=== PATIENT | male | born 1960 | race African-American/Black ===

== ENCOUNTER 2019-09-15 13:07 | Observation (INO) | payer MEDICARE, OTHER ==
[~2019-09-15] VITALS: Ht 198.1 cm; Wt 124.3 kg
[~2019-09-15 13:07] MED LIST: ATORVASTATIN CA20 MG PO; CLOPIDOGREL75 MG PO; HYDROCHLOROTHIA25 MG PO; METOPROLOL TART25 MG PO; TEMAZEPAM30 MG PO
--- OUTSIDE RECORDS SUMMARY | 2019-09-15 13:10 | XMS REPORT ---
Author Author [facility] Address Unknown Phone Unavailable Care Team Providers Care Director Audience Marketing Name Role Phone Unavailable Unavailable Problems This patient has no known problems. Allergies, Adverse Reactions, Alerts This patient has no known allergies or adverse reactions. Medications This patient has no known medications.
--- OUTSIDE RECORDS SUMMARY | 2019-09-15 13:10 | XMS REPORT | Summary of Care ---
Author Author [facility] - Health Organization [facility] - Health Address Unknown Phone Unavailable Care Team Providers Care Cutting Machine Fixer Name Role Phone Rojelio Tarango MD PCP Encounter Details Care Team Description Date Type Department Billy Kearney, DO [address] [place] [address] Arrived 09/09/2019 [facility] Encounter Pediatric Primary Care - Radiology [address] [place] [address] Allergies No Known Allergiesdocumented as of this encounter (statuses as of 09/10/2019) Medications End Date Status Medication Sig Dispensed Refills Start Date Active temazepam (RESTORIL) 30 Take 1 Cap by 90 Cap 1 mg capsuleIndications: mouth at 5 Insomnia bedtime. Active pantoprazole 40 mg EC Take 1 tablet 30 tablet 0 tablet by mouth 7 daily. Active aspirin 81 mg EC tablet Take 1 tablet 0 by mouth 7 daily. Active methylPREDNISolone 4 mg Take by 21 Each 0 tabletsIndications: mouth 9 Chronic pansinusitis, SEE-INSTRUCTI Hearing abnormally acute, ONS. follow left package directions Active azelastine 137 mcg (0.1 Use 1 [place] 30 mL 3 %) nasal in each 9 sprayIndications: nostril 2 Salpingitis of left (two) times eustachian tube daily. Use in each nostril as directed Active azithromycin 250 mg Take 1 tablet 1 Package 0 tabletIndications: by mouth 9 Bacterial URI daily. Take 500 mg day 1, then 250 mg days 2 to 5. Active metoprolol tartrate 25 mg Take 1 tablet 180 tablet 3 tabletIndications: by mouth 2 0 Coronary artery disease (two) times involving rosebud coronary daily. artery of rosebud heart without angina pectoris Active atorvastatin 40 mg Take 1 tablet 90 tablet 3 tabletIndications: by mouth at 0 Coronary artery disease bedtime. involving rosebud coronary artery of rosebud heart without angina pectoris Active hydroCHLOROthiazide 12.5 Take 1 90 capsule 1 mg capsuleIndications: capsule by 0 Essential hypertension mouth daily. 10/09/2019 Active mometasone (NASONEX) 50 Use 1 [place] 17 g 0 mcg/actuation nasal in each 0 sprayIndications: Dyspnea nostril every on exertion 4 (four) hours as needed (sinus congestion) for up to 30 days. 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 05/26/2015 H/O coronary artery bypass surgery 05/12/2015 CAD (coronary artery disease) 05/12/2015 NSTEMI (non-ST elevated myocardial infarction) 05/08/2015 Insomnia 07/03/2012 documented as of this encounter (statuses as of 09/10/2019) Resolved Problems Problem Noted Date Resolved Date Pre-syncope 08/15/2015 10/20/2018 Edema of hand 08/02/2015 10/20/2018 Weakness of left hand 08/02/2015 10/20/2018 Chest pain 11/15/2011 10/20/2018 Overview: ICD10 Diagnosis Term 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 Other chronic otitis externa 11/12/2006 10/20/2018 documented as of this encounter (statuses as of 09/10/2019) Immunizations Name Administration Dates Next Due Influenza Virus Vaccine 07/13/2013 (3+ yrs) Influenza Virus Vaccine 05/18/2015 Quad IM 3+ YRS documented as of this encounter Social History Date Tobacco Use Types Packs/Day Years Used Never Smoker Smokeless Tobacco: Never Used Drinks/Week oz/Week Comments Alcohol Use 1 Standard drinks or equivalent 0.8 rare Yes Sex Assigned at Date Recorded Not on file Industry Job Start Date Occupation Not on file Not on file Not on file Travel End Travel History Travel Start No recent travel history available. documented as of this encounter Last Filed Vital Signs Not on filedocumented in this encounter Plan of Treatment Care Team Description Date Type Specialty Sergio Sanabria MD [address] [place] [phone] 11/24/2019 Office Visit Family Medicine Bushra Coles MD [address] [place] [address] [address] [place] [address] [phone] 07/07/2020 Office Visit Cardiology Health Maintenance Due Date Last Done Comments HEPATITIS C (HCV) SCREEN 1960 PNEUMOCOCCAL 0-64 YEARS 1966 COMBINED SERIES (1 of 3 - PCV13) DTaP,Tdap,and Td Vaccines 12/13/1971 (1 - Tdap) COLONOSCOPY 2010 Zoster Recombinant 2010 Vaccine (SHINGRIX) (1 of 2) INFLUENZA VACCINE (#1) 2020 05/18/2015, 07/13/2013 Postponed from 02/28/2019 (Refused) documented as of this encounter Procedures Comments Procedure Name Priority Date/Time Associated Diagnosis XR CHEST 2 VW Routine 09/09/2019 Dyspnea on exertion 12:33 PM CDT documented in this encounter Results * XR CHEST 2 VW (09/09/2019 12:33 PM CDT) Specimen Impressions Performed At No acute cardiopulmonary abnormality PACS/VR/DOSE Preliminary Report Dictated by Resident: Caitlin Morelos I, Delroy Thao MD., have reviewed this study and agree with the above report. Narrative Performed At EXAM: PACS/VR/DOSE XR CHEST 2 VW HISTORY: 58 years-old; Male; shortness of breath COMPARISON: 08/09/2018 FINDINGS: The lungs are clear with no focal consolidation. There is no pleural effusion or pneumothorax. The cardiomediastinal silhouette is normal. No acute osseous structure abnormality. Changes of median sternotomy is noted. Multiple clips superimposing over the left arterial appendix. Procedure Note [facility], Radiant Results Inft User - 09/09/2019 1:05 PM CDT EXAM: XR CHEST 2 VW HISTORY: 58 years-old; Male; shortness of breath COMPARISON: 08/09/2018 FINDINGS: The lungs are clear with no focal consolidation. There is no pleural effusion or pneumothorax. The cardiomediastinal silhouette is normal. No acute osseous structure abnormality. Changes of median sternotomy is noted. Multiple clips superimposing over the left arterial appendix. IMPRESSION No acute cardiopulmonary abnormality Preliminary Report Dictated by Resident: Caitlin Morelos I, Delroy Thao MD., have reviewed this study and agree with the above report. Performing Organization Address City/State/Zipcode Phone Number PACS/VR/DOSE documented in this encounter Visit Diagnoses Diagnosis Dyspnea on exertion Other dyspnea and respiratory abnormality documented in this encounter Insurance Type Payer Benefit Subscriber ID Effective Phone Address Plan / Dates Group Medicare Adv PPO HUMANA - MANAGED MEDICARE HUMANA [id number] 2017-P CHOICE resent documented as of this encounter
--- OUTSIDE RECORDS SUMMARY | 2019-09-15 13:10 | XMS REPORT | Summary of Care ---
Author Author [facility] - Health Organization [facility] - Health Address Unknown Phone Unavailable Care Team Providers Care Barrel Waterer Name Role Phone Rojelio Tarango MD PCP Reason for Referral * (Routine) Referred By Contact Referred To Contact Status Reason Specialty Diagnoses / Procedures Billy Kearney DO [address] [place] [address] New Request Cardiology Diagnoses Dyspnea on exertion P rocedures ECHO ROUTINE W/DOPPLER COLOR Preferred Location: [place] ([facility]) Reason for Visit * Reason Comments Congestion Shortness of Breath Encounter Details Care Team Description Date Type Department Billy Kearney DO [address] [place] [address] Sergio Sanabria MD [address] [place] [phone] Dyspnea on exertion (Primary Dx); Chronic pansinusitis; Hearing abnormally acute, left; Salpingitis of left eustachian tube; Coronary artery disease involving gakona coronary artery of gakona heart without angina pectoris; Obesity (BMI 30-39.9); Essential hypertension; Abnormal findings on diagnostic imaging of other parts of digestive tract ; Abnormal finding of blood chemistry, unspecified 09/09/2019 Office Visit [facility], [address], [address] [place] [address] Allergies No Known Allergiesdocumented as of this encounter (statuses as of 09/09/2019) Medications End Date Status Medication Sig Dispensed [...] Active azelastine 137 mcg (0.1 Use 1 [place] 30 mL 3 %) nasal in each [...] 0 Coronary artery disease (two) times involving gakona coronary daily. artery of gakona heart without angina pectoris Active atorvastatin 40 mg Take 1 tablet 90 tablet 3 tabletIndications: by mouth at 0 Coronary artery disease bedtime. involving gakona coronary artery of gakona heart without angina pectoris Active hydroCHLOROthiazide 12.5 Take 1 90 capsule 1 mg capsuleIndications: capsule by 0 Essential hypertension mouth daily. 10/09/2019 Active mometasone (NASONEX) 50 Use 1 [place] 17 g 0 mcg/actuation nasal in each 0 sprayIndications: Dyspnea nostril every on exertion 4 (four) hours as needed (sinus congestion) for up to 30 days. 09/09/2019 Discontinued (Duplicate) fluticasone 50 Use 1 [place] 16 g 0 mcg/actuation nasal in each 9 sprayIndications: Acute nostril bronchitis, unspecified daily. organism 09/09/2019 Discontinued (Reorder) hydroCHLOROthiazide 12.5 Take 1 90 capsule 1 mg capsule capsule by 9 mouth daily. 09/09/2019 Discontinued (Error) fluticasone propionate 50 Use 1 [place] 16 g 0 mcg/actuation nasal in each 9 sprayIndications: Chronic nostril 2 pansinusitis, Hearing (two) times abnormally acute, left daily. 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 05/26/2015 H/O coronary artery bypass surgery 05/12/2015 CAD (coronary artery disease) 05/12/2015 NSTEMI (non-ST elevated myocardial infarction) 05/08/2015 Insomnia 07/03/2012 documented as of this encounter (statuses as of 09/09/2019) Resolved Problems Problem Noted Date Resolved Date Pre-syncope 08/15/2015 10/20/2018 Edema of hand 08/02/2015 10/20/2018 Weakness of left hand 08/02/2015 10/20/2018 Chest pain 11/15/2011 10/20/2018 Overview: ICD10 Diagnosis Term Hearing Aid Assembly Supervisor Utility Other chronic otitis externa 11/12/2006 10/20/2018 documented as of this encounter (statuses as of 09/09/2019) Immunizations Name Administration Dates Next Due Influenza [...] of this encounter Last Filed Vital Signs Reading Time Taken Comments Vital Sign 122/80 09/09/2019 10:54 AM CDT Blood Pressure 63 09/09/2019 10:54 AM CDT Pulse 36.2 C (97.1 F) 09/09/2019 10:54 AM CDT Temperature 20 09/09/2019 10:54 AM CDT Respiratory Rate 96% 09/09/2019 10:54 AM CDT Oxygen Saturation - - Inhaled Oxygen Concentration 126.6 kg (279 lb) 09/09/2019 10:54 AM CDT Weight 198.1 cm (6' 6") 09/09/2019 10:54 AM CDT Height 32.24 09/09/2019 10:54 AM CDT Body Mass Index documented in this encounter Progress Notes * Suri Correa MA - 09/09/2019 10:30 AM CDT The patient has signed the informed consent to have blood drawn. Previous/Current Encounter Diagnosis: R06.9, R93.3, R79.9, E66.9 Venipuncture performed by clean technique on the right anticubitus. Slight pres sure and a bandage/dressing were applied to the venipuncture site. The patient tolerated the procedure well. Labs were sent to [facility]'s main lab per lab order o n 09/09/2019. Total venipuncture of 1 was done and 3 tubes of blood were sent. * Sergio Sanabria MD - 09/09/2019 10:30 AM CDT Family Medicine Clinic Visit Date: 09/09/2019 CC: Congestion and Shortness of Breath HPI: Demarco Coronado is a 58 year old male with past medical history of sinusitis, allergi c rhinitis, CAD s/p CABG X2 (2014) presents with a complain of shortness of mann th and sinus pressure for one week. Shortness of breath is intermittent, feels l charles "cant breath", remained the same, worse with exersion, normal at rest and la juan down, occurs anytime in the day. Associated with something stuck in the thr oat "feels like there is thick secretion in my throat" and sinus. He has tried m ucinex which didn't help. Denies fever, chills, chest pain, palpitations, nausea , vomiting, diarrhea, polyphagia, polydipsia, change in weight, recent travel or sick contact. Patient is worried that he might catch vinson virus so he is stay ing at home for the past week. Patient never smoked tobacco or illicit drugs or used heavy alcohol in the past. Home Medications: Current Outpatient Medications Medication Sig Dispense Refill hydroCHLOROthiazide 12.5 mg capsule Take 1 capsule by mouth daily. 90 capsul e 1 mometasone (NASONEX) 50 mcg/actuation nasal spray Use 1 [place] in each nostri l every 4 (four) hours as needed (sinus congestion) for up to 30 days. 17 g 0 atorvastatin 40 mg tablet Take 1 tablet by mouth at bedtime. 90 tablet 3 metoprolol tartrate 25 mg tablet Take 1 tablet by mouth 2 (two) times daily. 180 tablet 3 azithromycin 250 mg tablet Take 1 tablet by mouth daily. Take 500 mg day 1, then 250 mg days 2 to 5. 1 Package 0 methylPREDNISolone 4 mg tablets Take by mouth SEE-INSTRUCTIONS. follow pack age directions 21 Each 0 aspirin 81 mg EC tablet Take 1 tablet by mouth daily. pantoprazole 40 mg EC tablet Take 1 tablet by mouth daily. 30 tablet azelastine 137 mcg (0.1 %) nasal spray Use 1 [place] in each nostril 2 (two) t imes daily. Use in each nostril as directed 30 mL 3 temazepam (RESTORIL) 30 mg capsule Take 1 Cap by mouth at bedtime. 90 Cap 1 No current facility-administered medications for this visit. Allergies: No Known Allergies Histories: Past Medical History: Diagnosis Date Acute maxillary sinusitis Allergic rhinitis Depressive disorder, not elsewhere classified Hyperlipidemia S/P off pump CABG x 2 05/12/2015 Unspecified otitis media Past Surgical History: Procedure Laterality Date CORONARY ARTERY BYPASS GRAFT N/A 05/12/2015 Surgeon: Alf Hoffmann MD; Location: [facility] OFF PUMP CORONARY ARTERY BYPASS GRAFTING 05/12/2015 TONSILLECTOMY done for recurrent infections Family History Problem Relation Age of Onset Cancer Father lung Diabetes Mother Heart Mother CABG @ 70 Hypertension Mother Social History Tobacco Use Smoking status: Never Smoker Smokeless tobacco: Never Used Substance Use Topics Alcohol use: Yes Alcohol/week: 0.8 standard drinks Types: 1 Standard drinks or equivalent per week Comment: rare Drug use: No Review of Systems Constitutional: Negative for appetite change, chills, fatigue, fever, unexpected weight change, weight gain and weight loss. HENT: Positive for congestion and sinus pressure. Negative for nosebleeds, rhino rrhea, sore throat and voice change. Eyes: Negative for redness. Respiratory: Positive for shortness of breath. Negative for cough, choking, ches t tightness and wheezing. Cardiovascular: Positive for leg swelling. Negative for chest pain and palpitati ons. Gastrointestinal: Negative for abdominal distention, abdominal pain, diarrhea, n ausea and vomiting. Genitourinary: Negative for urgency, polyuria and frequency. Musculoskeletal: Negative for myalgias and neck pain. Skin: Negative for color change and rash. Neurological: Negative for weakness and headaches. Endocrine: Negative for polydipsia, polyphagia, polyuria, weight gain and weight loss. BP 122/80 | Pulse 63 | Temp 36.2 C (97.1 F) | Resp 20 | Ht 6' 6" (1.981 m) | Wt 279 lb (126.6 kg) | SpO2 96% | BMI 32.24 kg/m Physical Exam Constitutional: He is oriented to person, place, and time. He appears well-devel oped and well-nourished. No distress. HENT: Head: Normocephalic and atraumatic. Nose: Nose normal. Mouth/Throat: Oropharynx is clear and moist. No oropharyngeal exudate. No facial tenderness to palpation Eyes: Pupils are equal, round, and reactive to light. EOM are normal. Neck: No thyromegaly present. Cardiovascular: Normal rate, regular rhythm and normal heart sounds. Exam reveal s no gallop and no friction rub. No murmur heard. Pulmonary/Chest: Effort normal and breath sounds normal. No respiratory distress . He has no wheezes. He has no rales. Abdominal: Soft. Bowel sounds are normal. He exhibits no distension. There is no tenderness. Musculoskeletal: Normal range of motion. He exhibits edema. Trace bilateral lower extremity ankle edema Lymphadenopathy: He has no cervical adenopathy. Neurological: He is alert and oriented to person, place, and time. No cranial ne rve deficit. Skin: No rash noted. No erythema. Psychiatric: He has a normal mood and affect. Assessment and Plan: Demarco Coronado is a 58 year old male presents with shortness of breath for one week. 1. Dyspnea on exertion Acute. Stable. Physical exam positive for trace bilateral ankle edema. Patient w ith hx of alpha thalassemia and iron deficiency anemia, CAD s/p CABG x2 in 2014. Last echo is in 2018 with mild blt atrial dilation, mild aortic root dilation a nd mild pulmonary hypertension. EKG in 06/2019 normal sinus rhythm. - CBC WITH DIFF - COMP. METABOLIC PANEL (26516); Future - ECHO ROUTINE W/DOPPLER COLOR Preferred Location: [place] ([facility]); Future - XR CHEST 2 VW; Future - N-TERMINAL PRO-BNP; Future - THYROID STIMULATING HORMONE; Future - Adequate rest and fluid intake. Avoid public area. Perform hand hygiene. - expected course of illness discussed with patient. Voiced understanding - discussed potential for present illness to worsen as well as warning signs tremaine t would require reevaluation - AVS provided with additional information for the patient - all questions voiced answered - RTC precautions discussed and patient. noted understanding 2. Chronic pansinusitis Chronic recurrent sinus pressure. Stable. Patient reports no-to-clear nasal disc harge. - mometasone (NASONEX) 50 mcg/actuation nasal spray; Use 1 [place] in each nostril every 4 (four) hours as needed (sinus congestion) for up to 30 days. 3. Coronary artery disease involving gakona coronary artery of gakona heart with out angina pectoris Chronic. Stable. Currently no chest pain, palpitations. -managed by cardiology. -Continue metoprolol, HCTZ, Aspirin, atorvastatin -LIPID PANEL (71743)(TOTAL CHOLESTEROL, TRIGLYCERIDES, HDL); Future 4. Obesity (BMI 30-39.9) 5. Abnormal finding of blood chemistry, unspecified - GLYCOSYLATED HEMOGLOBIN (A1C) - Discussed about portion control of diet. 6. Essential hypertension Chronic. Stable. Home BP readings <120/80. - hydroCHLOROthiazide 12.5 mg capsule; Take 1 capsule by mouth daily. Dispense: 90 capsule; Refill: 1 Other Medical history 7. Hearing abnormally acute, left 8. Salpingitis of left eustachian tube RTC in 2 months for chronic disease management and health maintenance. ED warnings given. Patient understands. All questions and concerns addressed. Sergio Sanabria MD (PGY-1) Family Medicine documented in this encounter Plan of Treatment Care Team Description Date Type Specialty Sergio Sanabria MD [address] [place] [phone] 11/24/2019 Office Visit Family Medicine Bushra Coles MD [address] [place] [address] [place] [address] [phone] 07/07/2020 Office Visit Cardiology Date/Time Name Type Priority Associated Diagnoses 09/09/2019 12:12 PM CDT CBC WITH DIFF LAB Routine Dyspnea on exertion 09/09/2019 12:12 PM CDT COMP. METABOLIC PANEL LAB Routine Dyspnea on exertion (67744) 09/09/2019 12:12 PM CDT LIPID PANEL (77558)(TOTAL LAB Routine Abnormal findings on CHOLESTEROL, diagnostic imaging of TRIGLYCERIDES, HDL) other parts of digestive tract Dyspnea on exertion 09/09/2019 12:12 PM CDT GLYCOSYLATED HEMOGLOBIN LAB Routine Abnormal finding of blood (A1C) chemistry, unspecified Obesity (BMI 30-39.9) 09/09/2019 12:12 PM CDT N-TERMINAL PRO-BNP LAB Routine Dyspnea on exertion 09/09/2019 12:12 PM CDT THYROID STIMULATING LAB Routine Dyspnea on exertion HORMONE 09/09/2019 12:12 PM CDT CBC WITH DIFFERENTIAL LAB Routine Dyspnea on exertion Order Schedule Name Type Priority Associated Diagnoses Expected: 09/09/2019, Expires: 09/08/2020 COMP. METABOLIC PANEL LAB Routine Dyspnea on exertion (16821) Expected: 09/09/2019, Expires: 09/08/2020 LIPID PANEL (26251)(TOTAL LAB Routine Abnormal findings on CHOLESTEROL, diagnostic imaging of TRIGLYCERIDES, HDL) other parts of digestive tract Dyspnea on exertion Expected: 09/09/2019, Expires: 09/08/2020 N-TERMINAL PRO-BNP LAB Routine Dyspnea on exertion Expected: 09/09/2019, Expires: 09/08/2020 THYROID STIMULATING LAB Routine Dyspnea on exertion HORMONE Health Maintenance Due Date Last Done Comments HEPATITIS C (HCV) SCREEN 1960 PNEUMOCOCCAL 0-64 YEARS 1966 COMBINED SERIES (1 of 3 - PCV13) DTaP,Tdap,and Td Vaccines 12/13/1971 (1 - Tdap) COLONOSCOPY 2010 Zoster Recombinant 2010 Vaccine (SHINGRIX) (1 of 2) INFLUENZA VACCINE (#1) 2020 05/18/2015, 07/13/2013 Postponed from 02/28/2019 (Refused) documented as of this encounter Results * XR CHEST 2 VW (09/09/2019 12:33 PM CDT) Specimen Impressions Performed At No acute cardiopulmonary abnormality PACS/VR/DOSE Preliminary Report Dictated by Resident: Delroy Craft MD., have reviewed this study and agree [...] cardiopulmonary abnormality Preliminary Report Dictated by Resident: Delroy Craft MD., have reviewed this study and agree with the above report. Performing Organization Address City/State/Zipcode Phone Number PACS/VR/DOSE documented in this encounter Visit Diagnoses Diagnosis Dyspnea on exertion - Primary Other dyspnea and respiratory abnormality Chronic pansinusitis Other chronic sinusitis Hearing abnormally acute, left Salpingitis of left eustachian tube Eustachian salpingitis, unspecified Coronary artery disease involving gakona coronary artery of gakona heart without angina pectoris Obesity (BMI 30-39.9) Obesity, unspecified Essential hypertension Unspecified essential hypertension Abnormal findings on diagnostic imaging of other parts of digestive tract Abnormal finding of blood chemistry, unspecified documented in this encounter Insurance Type Payer Benefit Subscriber ID Effective Phone Address Plan / Dates Group Medicare Adv PPO HUMANA - MANAGED MEDICARE HUMANA [id number] 2017-P CHOICE resent documented as of this encounter
--- OUTSIDE RECORDS SUMMARY | 2019-09-15 13:10 | XMS REPORT | Summary of Care ---
Author Author [facility] - Health Organization [facility] - Health Address Unknown Phone Unavailable Care Team Providers Care Inspector Assembly Name Role Phone Rojelio Tarango MD PCP Reason for Referral * (Routine) Referred By Contact Referred To Contact Status Reason Specialty Diagnoses / Procedures Billy Kearney DO [address] [place] [address] New Request Cardiology Diagnoses Dyspnea on exertion P rocedures ECHO ROUTINE W/DOPPLER COLOR Preferred Location: [place] ([facility]) Reason for Visit * Reason Comments Congestion Shortness of Breath Encounter Details Care Team Description Date Type Department Billy Kearney DO [address] [place] [address] Sergio Sanabria MD [address] [place] [phone] Dyspnea on exertion (Primary Dx); Chronic pansinusitis; Hearing abnormally acute, left; Salpingitis of left eustachian tube; Coronary artery disease involving [place] coronary artery of [place] heart without angina pectoris; Obesity (BMI 30-39.9); Essential hypertension; Abnormal findings on diagnostic imaging of other parts of digestive tract ; Abnormal finding of blood chemistry, unspecified 09/09/2019 Office Visit [facility] Family Medicine, [address], [address] [place] [address] Allergies No Known Allergiesdocumented as [...] Active azelastine 137 mcg (0.1 Use 1 [place] 30 mL 3 %) nasal in each [...] 0 Coronary artery disease (two) times involving [place] coronary daily. artery of [place] heart without angina pectoris Active atorvastatin 40 mg Take 1 tablet 90 tablet 3 tabletIndications: by mouth at 0 Coronary artery disease bedtime. involving [place] coronary artery of [place] heart without angina pectoris Active hydroCHLOROthiazide 12.5 Take 1 90 capsule 1 mg capsuleIndications: capsule by 0 Essential hypertension mouth daily. 10/09/2019 Active mometasone (NASONEX) 50 Use 1 [place] 17 g 0 mcg/actuation nasal in each 0 sprayIndications: Dyspnea nostril every on exertion 4 (four) hours as needed (sinus congestion) for up to 30 days. 09/09/2019 Discontinued (Duplicate) fluticasone 50 Use 1 [place] 16 g 0 mcg/actuation nasal in each 9 sprayIndications: Acute nostril bronchitis, unspecified daily. organism 09/09/2019 Discontinued (Reorder) hydroCHLOROthiazide 12.5 Take 1 90 capsule 1 mg capsule capsule by 9 mouth daily. 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 Labs were sent to [facility]'s main lab per lab order o [...] (NASONEX) 50 mcg/actuation nasal spray Use 1 [place] in each nostri l every 4 (four) [...] mcg (0.1 %) nasal spray Use 1 [place] in each nostril 2 (two) t imes [...] N/A 05/12/2015 Surgeon: Alf Hoffmann MD; Location: [facility] CORONARY ARTERY BYPASS GRAFTING 05/12/2015 [...] CBC WITH DIFF - COMP. METABOLIC PANEL (78540); Future - ECHO ROUTINE W/DOPPLER COLOR Preferred Location: [place] ([facility]); Future - XR CHEST 2 VW; Future [...] (NASONEX) 50 mcg/actuation nasal spray; Use 1 [place] in each nostril every 4 (four) hours as needed (sinus congestion) for up to 30 days. 3. Coronary artery disease involving [place] coronary artery of [place] heart with out angina pectoris Chronic. Stable. Currently no chest pain, palpitations. -managed by cardiology. -Continue metoprolol, HCTZ, Aspirin, atorvastatin -LIPID PANEL (74327)(TOTAL CHOLESTEROL, TRIGLYCERIDES, HDL); Future 4. Obesity (BMI [...] Description Date Type Specialty Sergio Sanabria MD [address] [place] [phone] 11/24/2019 Office Visit Family Medicine Bushra Coles MD [address] [place] [address] [place] [address] [phone] 07/07/2020 Office Visit Cardiology Order Schedule Name Type Priority Associated Diagnoses Ordered: 09/10/2019 IRON PANEL LAB Add-on Dyspnea on exertion Expected: 09/10/2019, Expires: 09/09/2020 FERRITIN SERUM LAB Add-on Dyspnea on exertion Expected: 09/10/2019, Expires: 09/09/2020 BILIRUBIN TOTAL LAB Add-on Dyspnea on exertion Health Maintenance Due Date Last Done Comments HEPATITIS C (HCV) SCREEN 1960 PNEUMOCOCCAL 0-64 YEARS 1966 COMBINED SERIES (1 of 3 - PCV13) DTaP,Tdap,and Td Vaccines 12/13/1971 (1 - Tdap) COLONOSCOPY 2010 Zoster Recombinant 2010 Vaccine (SHINGRIX) (1 of 2) INFLUENZA VACCINE (#1) 2020 05/18/2015, 07/13/2013 Postponed from 02/28/2019 (Refused) documented as of this encounter Procedures Comments Procedure Name Priority Date/Time Associated Diagnosis CBC WITH DIFFERENTIAL Routine 09/09/2019 Dyspnea on exertion 12:12 PM CDT N-TERMINAL PRO-BNP Routine 09/09/2019 Dyspnea on exertion 12:12 PM CDT GLYCOSYLATED HEMOGLOBIN Routine 09/09/2019 Abnormal finding of blood (A1C) 12:12 PM CDT chemistry, unspecified Obesity (BMI 30-39.9) CBC WITH DIFFERENTIAL Routine 09/09/2019 Dyspnea on exertion 12:12 PM CDT LIPID PANEL (98521)(TOTAL Routine 09/09/2019 Abnormal findings on CHOLESTEROL, 12:12 PM CDT diagnostic imaging of TRIGLYCERIDES, HDL) other parts of digestive tract Dyspnea on exertion COMP. METABOLIC PANEL Routine 09/09/2019 Dyspnea on exertion (69414) 12:12 PM CDT THYROID STIMULATING Routine 09/09/2019 Dyspnea on exertion HORMONE 12:12 PM CDT documented in this encounter Results [...] Performing Organization Address City/State/Zipcode Phone Number PACS/VR/DOSE * CBC WITH DIFFERENTIAL (09/09/2019 12:12 PM CDT) WBC 5.43 4.20 - 10.70 [facility] 10*3/L SERVICES RBC 6.34 (H) 4.26 - 5.52 10*6/L [facility] HGB 15.2 12.2 - 16.4 g/dL [facility] HCT 45.5 38.4 - 49.3 % [facility] MCV 71.8 (L) 81.7 - 95.6 fL [facility] MCH 24.0 (L) 26.1 - 32.7 pg [facility] MCHC 33.4 31.2 - 35.0 g/dL [facility] RDW-SD 40.2 38.5 - 51.6 fL [facility] RDW-CV 17.7 (H) 12.1 - 15.4 % [facility] PLT 161 150 - 328 10*3/L [facility] MPV 10.7 9.8 - 13.0 fL [facility] IPF % 4.7Comment: Platelet count 1.2 - 10.7 % [facility] measured by fluorescence SERVICES method. NRBC/100 WBC 0.0 0.0 - 10.0 /100 WBCs [facility] SERVICES NRBC x10^3 <0.01 10*3/L [facility] GRAN MAT (NEUT) 61.2 % [facility] % SERVICES IMM GRAN % 0.20 % [facility] LYMPH % 27.8 % [facility] MONO % 8.5 % [facility] EOS % 1.7 % [facility] BASO % 0.6 % [facility] GRAN MAT 3.33 1.99 - 6.95 10*3/uL [facility] x10^3(ANC) SERVICES IMM GRAN x10^3 <0.03 0.00 - 0.06 10*3/uL [facility] LYMPH x10^3 1.51 1.09 - 3.23 10*3/uL [facility] MONO x10^3 0.46 0.36 - 1.02 10*3/uL [facility] EOS x10^3 0.09 0.06 - 0.53 10*3/uL [facility] BASO x10^3 0.03 0.01 - 0.09 10*3/uL [facility] REACT LYMPHS Rare [facility] SERVICES Specimen Blood - ARM, RIGHT Performing Organization Address City/[facility]/Zipcode Phone Number [facility] CLIA: [id number], [address] [place] [address] [facility] * THYROID STIMULATING HORMONE (09/09/2019 12:12 PM CDT) TSH 2.10 0.45 - 4.70 mIU/L [facility] SERVICES Specimen Blood - ARM, RIGHT Performing Organization Address City/[facility]/Zipcode Phone Number [facility] CLIA: [id number], [address] [place] [address] [facility] * N-TERMINAL PRO-BNP (09/09/2019 12:12 PM CDT) NT-proBNP 42 <=125 pg/mL [facility] SERVICES Specimen Blood - ARM, RIGHT Narrative Performed At Biotin has been reported to cause a negative bias, interpret results relative to [facility] patient's use of biotin. SERVICES Performing Organization Address City/State/Zipcode Phone Number [facility] CLIA: [id number], [address] [place] [id number] [facility] * GLYCOSYLATED HEMOGLOBIN (A1C) (09/09/2019 12:12 PM CDT) HGB A1C 5.3 4.0 - 6.0 % [facility] SERVICES Specimen Blood - ARM, RIGHT Performing Organization Address City/[facility]/Zipcode Phone Number [facility] CLIA: [id number], [address] [place] [address] [facility] * LIPID PANEL (32611)(TOTAL CHOLESTEROL, TRIGLYCERIDES, HDL) (09/09/2019 12:12 PM CDT) CHOL 117 (L) 120 - 200 mg/dL [facility] SERVICES HDL 46 >40 mg/dL [facility] SERVICES HDLC RATIO 2.5 <=5.0 [facility] SERVICES TRIG 72 30 - 170 mg/dL [facility] SERVICES LDL CHOL 57 <=160 mg/dL [facility] SERVICES VLDL 14 5 - 60 mg/dL [facility] SERVICES Specimen Blood - ARM, RIGHT Performing Organization Address City/[facility] Phone Number [facility] CLIA: [id number], [address] [place] [address] [facility] * COMP. METABOLIC PANEL (07690) (09/09/2019 12:12 PM CDT) NA 139 135 - 145 mmol/L [facility] K 4.4 3.5 - 5.0 mmol/L [facility] CL 102 98 - 108 mmol/L [facility] CO2 TOTAL 27 23 - 31 mmol/L [facility] AGAP 10 2 - 16 [facility] BUN 14 7 - 23 mg/dL [facility] GLUCOSE 93 70 - 110 mg/dL [facility] CREATININE 0.97 0.60 - 1.25 mg/dL [facility] SERVICES TOTAL BILI 1.2 (H) 0.1 - 1.1 mg/dL [facility] SERVICES CALCIUM 9.6 8.6 - 10.6 mg/dL [facility] T PROTEIN 8.2 6.3 - 8.2 g/dL [facility] ALBUMIN 4.5 3.5 - 5.0 g/dL [facility] ALK PHOS 52 34 - 122 U/L [facility] ALTv 40 5 - 50 U/L [facility] AST(SGOT) 32 13 - 40 U/L [facility] SERVICES eGFR 79.5 mL/min/1.73m2 [facility] Calculation SERVICES (Non-) eGFR 96.3 mL/min/1.73m2 [facility] Calculation SERVICES () Specimen Blood - ARM, RIGHT Narrative Performed At Association of Glomerular Filtration Rate (GFR) and Staging of Kidney Disease* [facility] + + + + SERVICES | GFR (mL/min/1.73 m2) | With Kidney Damage | Without Kidney Damage + + + + | >90 | Stage one | Normal + + + + | 60-89 | Stage two | Decreased GFR + + + + | 30-59 | Stage three | Stage three + + + + | 15-29 | Stage four | Stage four + + + + | <15 (or dialysis) | Stage five | Stage five + + + + *Each stage assumes the associated GFR level has been in effect for at least three months. Stages 1 to 5, with or without kidney disease, indicate chronic kidney disease. Notes: Determination of stages one and two (with eGFR >59mL/min/1.73 m2) requires estimation of kidney damage for at least three months as defined by structural or functional abnormalities of the kidney, manifested by either: Pathological abnormalities or Markers of kidney damage (including abnormalities in the composition of the blood or urine or abnormalities in imaging tests). Performing Organization Address City/State/Zipcode Phone Number [facility] CLIA: [id number], [address] [place], [place] [address] [facility] documented in this encounter Visit Diagnoses Diagnosis Dyspnea on exertion - Primary Other dyspnea and respiratory abnormality Chronic pansinusitis Other chronic sinusitis Hearing abnormally acute, left Salpingitis of left eustachian tube Eustachian salpingitis, unspecified Coronary artery disease involving [place] coronary artery of [place] heart without angina pectoris Obesity (BMI 30-39.9) Obesity, unspecified Essential hypertension Unspecified essential hypertension Abnormal findings on diagnostic imaging of other parts of digestive tract Abnormal finding of blood chemistry, unspecified documented in this encounter Insurance Type Payer Benefit Subscriber ID Effective Phone Address Plan / Dates Group Medicare Adv PPO HUMANA - MANAGED MEDICARE HU[employer]NA [id number] 2017-P [employer] tavares documented as of this encounter
--- OUTSIDE RECORDS SUMMARY | 2019-09-15 13:10 | XMS REPORT | Summary of Care ---
Author Author [facility] - Health Organization [facility] - Health Address Unknown Phone Unavailable Care Team Providers Care Risk Control Officer Name Role Phone Rojelio Tarango MD PCP Reason for Visit * Reason Comments Refill Request [employer] /Lipitor, HCTZ Encounter Details Care Team Description Date Type Department Bushra Coles MD [address] [place] [address] [address] [place] [address] Refill Request ([employer] /Lipitor, HCTZ ) 02/08/2019 Refill [facility] [phone] Allergies No Known Allergiesdocumented as of this encounter (statuses as of 02/08/2019) Medications End Date Status Medication Sig Dispensed Refills Start Date Active temazepam (RESTORIL) 30 Take 1 Cap by 90 Cap 1 mg capsuleIndications: mouth at 5 Insomnia bedtime. Active pantoprazole 40 mg EC Take 1 tablet 30 tablet 0 tablet by mouth 7 daily. Active aspirin 81 mg EC tablet Take 1 tablet 0 by mouth 7 daily. Active fluticasone 50 Use 1 [place] 16 g 0 mcg/actuation nasal in each 9 sprayIndications: Acute nostril bronchitis, unspecified daily. organism Active metoprolol tartrate 25 mg Take 1 tablet 180 tablet 1 tablet by mouth 2 9 (two) times daily. Active atorvastatin 40 mg Take 1 tablet 90 tablet 1 tabletIndications: by mouth at 9 Coronary artery disease bedtime. involving [place] coronary artery of [place] heart without angina pectoris Active hydroCHLOROthiazide 12.5 Take 1 90 capsule 1 mg capsule capsule by 9 mouth daily. 02/08/2019 Discontinued atorvastatin 40 mg Take 1 tablet 7 tablet 0 tabletIndications: by mouth at 9 Coronary artery disease bedtime. 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 S/P off pump CABG x 2 05/12/2015 CAD (coronary artery disease) 05/12/2015 NSTEMI (non-ST elevated myocardial infarction) 05/08/2015 Insomnia 07/03/2012 documented as of this encounter (statuses as of 02/08/2019) Resolved Problems Problem Noted Date Resolved Date Pre-syncope 08/15/2015 10/20/2018 Edema of hand 08/02/2015 10/20/2018 Weakness of left hand 08/02/2015 10/20/2018 Chest pain 11/15/2011 10/20/2018 Overview: ICD10 Diagnosis Term Tag Maker Utility Other chronic otitis externa 11/12/2006 10/20/2018 documented as of this encounter (statuses as of 02/08/2019) Immunizations Name Administration Dates Next Due Influenza Virus Vaccine 07/13/2013 (3+ yrs) Influenza Virus Vaccine 05/18/2015 Quad IM 3+ YRS documented as of this encounter Social History Date Tobacco Use Types Packs/Day Years Used Never Smoker Smokeless Tobacco: Never Used Drinks/Week oz/Week Comments Alcohol Use 1 Standard drinks or equivalent 0.5 rare Yes Sex Assigned at Date Recorded Not on file Industry Job Start Date Occupation Not on file Not on file Not on file Travel End Travel History Travel Start No recent travel history available. documented as of this encounter Last Filed Vital Signs Not on filedocumented in this encounter Plan of Treatment Care Team Description Date Type Specialty Bushra Coles MD [address] [place] [address] [place] [address] [phone] 03/12/2019 Office Visit Cardiology Health Maintenance Due Date Last Done Comments HEPATITIS C (HCV) SCREEN 1960 PNEUMOCOCCAL 0-64 YEARS 1966 COMBINED SERIES (1 of 3 - PCV13) DTaP,Tdap,and Td Vaccines 12/13/1979 (1 - Tdap) COLONOSCOPY 2010 Zoster Recombinant 2010 Vaccine (SHINGRIX) (1 of 2) INFLUENZA VACCINE 09/04/2019 05/18/2015, 07/13/2013 Postponed from 02/28/2019 (Patient Refused) documented as of this encounter Results Not on filedocumented in this encounter Visit Diagnoses Diagnosis Coronary artery disease involving red [place] coronary artery of red devil heart without angina pectoris documented in this encounter Insurance Type Payer Benefit Subscriber ID Effective Phone Address Plan / Dates Group Medicare Adv PPO HU[employer]NA - MANAGED MEDICARE HU[employer]NA [id number] 2017-P CHOICE resent documented as of this encounter
--- OUTSIDE RECORDS SUMMARY | 2019-09-15 13:10 | XMS REPORT | Summary of Care ---
Author Author [facility] - Health Organization [facility] - Health Address Unknown Phone Unavailable Care Team Providers Care Hub Cutter Apprentice Name Role Phone Louis Kaye MD PCP Rojelio Tarango MD PCP Reason for Visit * Reason Comments Refill Request Encounter Details Care Team Description Date Type Department Bushra Coles MD [address] [place] [address] [place] [address] Refill Request 11/02/2018 Refill [facility] Cardiology- [address], [address] [place] [address] Allergies No Known Allergiesdocumented as of this [...] 1 tablet 0 by mouth 7 daily. documented as of this encounter (statuses [...] pain 11/15/2011 10/20/2018 Overview: ICD10 Diagnosis Term Billet Header Utility Other chronic otitis externa 11/12/2006 10/20/2018 [...] Description Date Type Specialty Sergio Sanabria MD [address] [place] [phone] 11/24/2019 Office Visit Family Medicine Bushra Coles MD [address] [place] [address] [place] [phone] 07/07/2020 Office Visit Cardiology Health Maintenance Due Date Last Done Comments HEPATITIS C (HCV) SCREEN 1960 PNEUMOCOCCAL 0-64 YEARS 1966 COMBINED SERIES (1 of 3 - PCV13) DTaP,Tdap,and Td Vaccines 12/13/1971 (1 - Tdap) COLONOSCOPY 2010 Zoster Recombinant 2010 Vaccine (SHINGRIX) (1 of 2) INFLUENZA VACCINE (#1) 2020 05/18/2015, 07/13/2013 Postponed from 02/28/2019 (Refused) documented as of this encounter Results Not on filedocumented in this encounter Insurance Type Payer Benefit Subscriber ID Effective Phone Address Plan / Dates Group Medicare Adv PPO HU[employer]NA - MANAGED MEDICARE HU[employer]NA [id number] 2017-P CHOICE resent documented as of this encounter
--- OUTSIDE RECORDS SUMMARY | 2019-09-15 13:10 | XMS REPORT | Summary of Care ---
Author Author [facility] - Health Organization [facility] - Health Address Unknown Phone Unavailable Care Team Providers Care Head Bander And Liner Operator Name Role Phone Rojelio Tarango MD PCP Reason for Visit * Reason Comments Refill Request Encounter Details Care Team Description Date Type Department Bushra Coles MD [address] [place] [address] Refill Request 08/27/2019 Refill [facility] Cardiology- [address], [address] [place] [address] Allergies No Known Allergiesdocumented as of this encounter (statuses as of 08/27/2019) Medications End Date Status Medication Sig Dispensed Refills Start Date Active temazepam (RESTORIL) 30 Take 1 Cap by 90 Cap 1 mg capsuleIndications: mouth at 5 Insomnia bedtime. Active pantoprazole 40 mg EC Take 1 tablet 30 tablet 0 tablet by mouth 7 daily. Active aspirin 81 mg EC tablet Take 1 tablet 0 by mouth 7 daily. Active fluticasone 50 Use 1 Telephone 16 g 0 mcg/actuation nasal in each 9 sprayIndications: Acute nostril bronchitis, unspecified daily. organism Active hydroCHLOROthiazide 12.5 Take 1 90 capsule 1 mg capsule capsule by 9 mouth daily. Active methylPREDNISolone 4 mg Take by 21 Each 0 tabletsIndications: mouth 9 Chronic pansinusitis, SEE-INSTRUCTI Hearing abnormally acute, ONS. follow left package directions Active fluticasone propionate 50 Use 1 Telephone 16 g 0 10/28/201 mcg/actuation nasal in each 9 sprayIndications: Chronic nostril 2 pansinusitis, Hearing (two) times abnormally acute, left daily. Active azelastine 137 mcg (0.1 Use 1 Telephone 30 mL 3 %) nasal in each [...] 0 Coronary artery disease (two) times involving [place] coronary daily. artery of [place] heart without angina pectoris Active atorvastatin 40 mg Take 1 tablet 90 tablet 3 tabletIndications: by mouth at 0 Coronary artery disease bedtime. involving [place] coronary artery of [place] heart without angina pectoris 08/27/2019 Discontinued (Reorder) atorvastatin 40 mg Take 1 tablet 90 tablet 1 tabletIndications: by mouth at 9 Coronary artery disease bedtime. 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 H/O coronary artery bypass surgery 05/12/2015 CAD (coronary artery disease) 05/12/2015 NSTEMI (non-ST elevated myocardial infarction) 05/08/2015 Insomnia 07/03/2012 documented as of this encounter (statuses as of 08/27/2019) Resolved Problems Problem Noted Date Resolved Date Pre-syncope 08/15/2015 10/20/2018 Edema of hand 08/02/2015 10/20/2018 Weakness of left hand 08/02/2015 10/20/2018 Chest pain 11/15/2011 10/20/2018 Overview: ICD10 Diagnosis Term Hat Measurer Utility Other chronic otitis externa 11/12/2006 10/20/2018 documented as of this encounter (statuses as of 08/27/2019) Immunizations Name Administration Dates Next Due Influenza [...] Description Date Type Specialty Bushra Coles MD [address] [place] [address] [address] [place] [address] 07/07/2020 Office Visit Cardiology Health Maintenance Due [...] Visit Diagnoses Diagnosis Coronary artery disease involving [place] coronary artery of [place] heart without angina pectoris documented in this encounter Insurance Type Payer Benefit Subscriber ID Effective Phone Address Plan / Dates Group Medicare Adv PPO HUMANA - MANAGED MEDICARE HUMANA [id number] 2017-P CHOICE resent documented as of this encounter
--- OUTSIDE RECORDS SUMMARY | 2019-09-15 13:10 | XMS REPORT | Summary of Care ---
Author Author [facility] - Health Organization [facility] - Health Address Unknown Phone Unavailable Care Team Providers Care Mixer Foam Rubber Name Role Phone Rojelio Tarango MD PCP Reason for Referral * (Routine) Referred By Contact Referred To Contact Status Reason Specialty Diagnoses / Procedures Billy Kearney DO [address] [place] [address] New Request Cardiology Diagnoses Dyspnea on exertion P rocedures ECHO ROUTINE W/DOPPLER COLOR Preferred Location: [place] ([facility]) Reason for Visit * Reason Comments Congestion Shortness of Breath Encounter Details Care Team Description Date Type Department Billy Kearney DO [address] [place] [address] Sergio Sanabria MD [address] [place] [phone] Dyspnea on exertion (Primary Dx); Chronic pansinusitis; Hearing abnormally acute, left; Salpingitis of left eustachian tube; Coronary artery disease involving [place] coronary artery of [place] heart without angina pectoris; Obesity (BMI 30-39.9); Essential hypertension; Abnormal findings on diagnostic imaging of other parts of digestive tract ; Abnormal finding of blood chemistry, unspecified 09/09/2019 Office Visit [facility], [address], [address] [place] [address] Allergies No Known Allergiesdocumented as [...] Active azelastine 137 mcg (0.1 Use 1 [place] 30 mL 3 %) nasal in each [...] 0 Coronary artery disease (two) times involving [place] coronary daily. artery of [place] heart without angina pectoris Active atorvastatin 40 mg Take 1 tablet 90 tablet 3 tabletIndications: by mouth at 0 Coronary artery disease bedtime. involving [place] coronary artery of [place] heart without angina pectoris Active hydroCHLOROthiazide 12.5 Take 1 90 capsule 1 mg capsuleIndications: capsule by 0 Essential hypertension mouth daily. 10/09/2019 Active mometasone (NASONEX) 50 Use 1 [place] 17 g 0 mcg/actuation nasal in each 0 sprayIndications: Dyspnea nostril every on exertion 4 (four) hours as needed (sinus congestion) for up to 30 days. 09/09/2019 Discontinued (Duplicate) fluticasone 50 Use 1 [place] 16 g 0 mcg/actuation nasal in each 9 sprayIndications: Acute nostril bronchitis, unspecified daily. organism 09/09/2019 Discontinued (Reorder) hydroCHLOROthiazide 12.5 Take 1 90 capsule 1 mg capsule capsule by 9 mouth daily. 09/09/2019 Discontinued (Error) fluticasone propionate 50 Use 1 [place] 16 g 0 mcg/actuation nasal in each [...] pain 11/15/2011 10/20/2018 Overview: ICD10 Diagnosis Term Director Of Physical Security Utility Other chronic otitis externa 11/12/2006 10/20/2018 [...] the procedure well. Labs were sent to [facility]'s main lab per lab order o n [...] (NASONEX) 50 mcg/actuation nasal spray Use 1 [place] in each nostri l every 4 (four) [...] mcg (0.1 %) nasal spray Use 1 [place] in each nostril 2 (two) t imes [...] N/A 05/12/2015 Surgeon: Alf Hoffmann MD; Location: [facility] [place] CORONARY ARTERY BYPASS GRAFTING 05/12/2015 [...] CBC WITH DIFF - COMP. METABOLIC PANEL (26325); Future - ECHO ROUTINE W/DOPPLER COLOR Preferred Location: [place] ([facility]); Future - XR CHEST 2 VW; [...] (NASONEX) 50 mcg/actuation nasal spray; Use 1 [place] in each nostril every 4 (four) hours as needed (sinus congestion) for up to 30 days. 3. Coronary artery disease involving [place] coronary artery of [place] heart with out angina pectoris Chronic. Stable. Currently no chest pain, palpitations. -managed by cardiology. -Continue metoprolol, HCTZ, Aspirin, atorvastatin -LIPID PANEL (60030)(TOTAL CHOLESTEROL, TRIGLYCERIDES, HDL); Future 4. Obesity (BMI [...] Description Date Type Specialty Sergio Sanabria MD [address] [place] [phone] 11/24/2019 Office Visit Family Medicine Bushra Coles MD [address] [place] [address] [place] [address] [phone] 07/07/2020 Office Visit Cardiology Date/Time Name Type Priority Associated Diagnoses 09/09/2019 12:12 PM CDT CBC WITH DIFF LAB Routine Dyspnea on exertion 09/09/2019 12:12 PM CDT COMP. METABOLIC PANEL LAB Routine Dyspnea on exertion (32964) 09/09/2019 12:12 PM CDT LIPID PANEL (33495)(TOTAL LAB Routine Abnormal findings on CHOLESTEROL, diagnostic [...] METABOLIC PANEL LAB Routine Dyspnea on exertion (44402) Expected: 09/09/2019, Expires: 09/08/2020 LIPID PANEL (18340)(TOTAL LAB Routine Abnormal findings on CHOLESTEROL, diagnostic [...] Eustachian salpingitis, unspecified Coronary artery disease involving [place] coronary artery of [place] heart without angina pectoris Obesity (BMI 30-39.9) Obesity, unspecified Essential hypertension Unspecified essential hypertension Abnormal findings on diagnostic imaging of other parts of digestive tract Abnormal finding of blood chemistry, unspecified documented in this encounter Insurance Type Payer Benefit Subscriber ID Effective Phone Address Plan / Dates Group Medicare Adv PPO HUMANA - MANAGED MEDICARE HUMANA [id number] 2017-P CHOICE resent documented as of this encounter
--- OUTSIDE RECORDS SUMMARY | 2019-09-15 13:11 | XMS REPORT | Summary of Care ---
Author Author [facility] - Health Organization [facility] - Health Address Unknown Phone Unavailable Care Team Providers Care Wind Farm Engineer Name Role Phone Sergio Sanabria MD PCP Reason for Visit * Reason Comments Results Encounter Details Care Team Description Date Type Department Sergio Sanabria MD [address] [place] [phone] Results 09/13/[address], [address] [place] [address] Allergies No Known Allergiesdocumented as of this encounter (statuses as of 09/13/2019) Medications End Date Status Medication Sig Dispensed [...] Active azelastine 137 mcg (0.1 Use 1 [place] 30 mL 3 %) nasal in each [...] 0 Coronary artery disease (two) times involving [place] coronary daily. artery of [place] heart without angina pectoris Active atorvastatin 40 mg Take 1 tablet 90 tablet 3 tabletIndications: by mouth at 0 Coronary artery disease bedtime. involving [place] coronary artery of [place] heart without angina pectoris Active hydroCHLOROthiazide 12.5 Take 1 90 capsule 1 mg capsuleIndications: capsule by 0 Essential hypertension mouth daily. 10/09/2019 Active mometasone (NASONEX) 50 Use 1 [place] 17 g 0 mcg/actuation nasal in each 0 sprayIndications: Dyspnea nostril every on exertion 4 (four) hours as needed (sinus congestion) for up to 30 days. 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 H/O coronary artery bypass surgery 05/12/2015 CAD (coronary artery disease) 05/12/2015 NSTEMI (non-ST elevated myocardial infarction) 05/08/2015 Insomnia 07/03/2012 documented as of this encounter (statuses as of 09/13/2019) Resolved Problems Problem Noted Date Resolved Date Pre-syncope 08/15/2015 10/20/2018 Edema of hand 08/02/2015 10/20/2018 Weakness of left hand 08/02/2015 10/20/2018 Chest pain 11/15/2011 10/20/2018 Overview: ICD10 Diagnosis Term Rehabilitation Case Coordinator Utility Other chronic otitis externa 11/12/2006 10/20/2018 documented as of this encounter (statuses as of 09/13/2019) Immunizations Name Administration Dates Next Due Influenza [...] Description Date Type Specialty Sergio Sanabria MD [address] [place] [phone] 11/24/2019 Office Visit Family Medicine Bushra Coles MD [address] [facility] [address] [place], [place] [address] 07/07/2020 Office Visit Cardiology Health Maintenance Due [...] Adv PPO HUMANA - MANAGED MEDICARE HUMANA [id number] 2017-P CHOICE resent documented as of this encounter
--- OUTSIDE RECORDS SUMMARY | 2019-09-15 13:11 | XMS REPORT | Summary of Care ---
Author Author [facility] - Health Organization [facility] - Health Address Unknown Phone Unavailable Care Team Providers Care Slunk Skinner Name Role Phone Sergio Sanabria MD PCP Reason for Visit * Reason Comments Rx Concern/Question Encounter Details Care Team Description Date Type Department Sergio Sanabria MD [address] [place] [phone] Rx Concern/Question 09/14/[address], [address] [place] [address] Allergies No Known Allergiesdocumented as of this encounter (statuses as of 09/15/2019) Medications End Date Status Medication Sig Dispensed [...] acute, ONS. follow left package directions Active azithromycin 250 mg Take 1 tablet 1 Package 0 tabletIndications: by mouth 9 Bacterial URI daily. Take 500 mg day 1, then 250 mg days 2 to 5. Active metoprolol tartrate 25 mg Take 1 tablet 180 tablet 3 tabletIndications: by mouth 2 0 Coronary artery disease (two) times involving [place] coronary daily. artery of [place] heart without angina pectoris Active atorvastatin 40 mg Take 1 tablet 90 tablet 3 tabletIndications: by mouth at 0 Coronary artery disease bedtime. involving [place] coronary artery of [place] heart without angina pectoris Active hydroCHLOROthiazide 12.5 Take 1 90 capsule 1 mg capsuleIndications: capsule by 0 Essential hypertension mouth daily. 10/09/2019 Active mometasone (NASONEX) 50 Use 1 [place] 17 g 0 mcg/actuation nasal in each 0 sprayIndications: Dyspnea nostril every on exertion 4 (four) hours as needed (sinus congestion) for up to 30 days. Active azelastine 137 mcg (0.1 Use 1 [place] 30 mL 3 %) nasal in each 0 sprayIndications: nostril 2 Salpingitis of left (two) times eustachian tube daily. 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 H/O coronary artery bypass surgery 05/12/2015 CAD (coronary artery disease) 05/12/2015 NSTEMI (non-ST elevated myocardial infarction) 05/08/2015 Insomnia 07/03/2012 documented as of this encounter (statuses as of 09/15/2019) Resolved Problems Problem Noted Date Resolved Date Pre-syncope 08/15/2015 10/20/2018 Edema of hand 08/02/2015 10/20/2018 Weakness of left hand 08/02/2015 10/20/2018 Chest pain 11/15/2011 10/20/2018 Overview: ICD10 Diagnosis Term Fiscal Clerk Utility Other chronic otitis externa 11/12/2006 10/20/2018 documented as of this encounter (statuses as of 09/15/2019) Immunizations Name Administration Dates Next Due Influenza [...] Description Date Type Specialty Sergio Sanabria MD [address] [place] [phone] 11/24/2019 Office Visit Family Medicine Bushra Coles MD [address] [facility] [address] [place], [place] [phone] 07/07/2020 Office Visit Cardiology Health Maintenance Due [...] Adv PPO HUMANA - MANAGED MEDICARE HUMANA [id number] 2017-P CHOICE resent documented as of this encounter
--- OUTSIDE RECORDS SUMMARY | 2019-09-15 13:11 | XMS REPORT | Summary of Care ---
Author Author [facility] - Health Organization [facility] - Health Address Unknown Phone Unavailable Care Team Providers Care Senior Ui Designer Name Role Phone Rojelio Tarango MD PCP Sergio Sanabria MD PCP Reason for Referral * (Routine) Referred By Contact Referred To Contact Status Reason Specialty Diagnoses / Procedures Billy Kearney DO [address] [place] [address] New Request Cardiology Diagnoses Dyspnea on exertion P rocedures ECHO ROUTINE W/DOPPLER COLOR Preferred Location: [place] ([facility]) Reason for Visit * Reason Comments Congestion Shortness of Breath Encounter Details Care Team Description Date Type Department Billy Kearney DO [address] [place] [address] Sergio Sanabria MD [address] [place] [phone] Dyspnea on exertion (Primary Dx); Chronic pansinusitis; Hearing abnormally acute, left; Salpingitis of left eustachian tube; Coronary artery disease involving [place] coronary artery of [place] heart without angina pectoris; Obesity (BMI 30-39.9); Essential hypertension; Abnormal findings on diagnostic imaging of other parts of digestive tract ; Abnormal finding of blood chemistry, unspecified 09/09/2019 Office Visit [facility], [address], [address] [place] [address] Allergies No Known Allergiesdocumented as [...] Active azelastine 137 mcg (0.1 Use 1 [place] 30 mL 3 %) nasal in each [...] 0 Coronary artery disease (two) times involving [place] coronary daily. artery of [place] heart without angina pectoris Active atorvastatin 40 mg Take 1 tablet 90 tablet 3 tabletIndications: by mouth at 0 Coronary artery disease bedtime. involving [place] coronary artery of [place] heart without angina pectoris Active hydroCHLOROthiazide 12.5 Take 1 90 capsule 1 mg capsuleIndications: capsule by 0 Essential hypertension mouth daily. 10/09/2019 Active mometasone (NASONEX) 50 Use 1 [place] 17 g 0 mcg/actuation nasal in each 0 sprayIndications: Dyspnea nostril every on exertion 4 (four) hours as needed (sinus congestion) for up to 30 days. 09/09/2019 Discontinued (Duplicate) fluticasone 50 Use 1 [place] 16 g 0 mcg/actuation nasal in each 9 sprayIndications: Acute nostril bronchitis, unspecified daily. organism 09/09/2019 Discontinued (Reorder) hydroCHLOROthiazide 12.5 Take 1 90 capsule 1 08/12/201 mg capsule capsule by 9 mouth daily. 09/09/2019 Discontinued (Error) fluticasone propionate 50 Use 1 [place] 16 g 0 mcg/actuation nasal in each [...] pain 11/15/2011 10/20/2018 Overview: ICD10 Diagnosis Term Full Stack Software Developer Utility Other chronic otitis externa 11/12/2006 10/20/2018 [...] the procedure well. Labs were sent to [facility]'s main lab per lab order o n 09/09/2019. Total venipuncture of 1 was done and 3 tubes of blood were sent. * Sergio Sanabria MD - 09/09/2019 10:30 AM CDT I was present in the clinic at the time of this encounter. I saw and discussed the patient with Dr. Sanabria and actively participated in the cydney-ivania mondragon process. I agree with the resident's note as written . Please see residen t's note for additional details. Billy Kearney DO Family Medicine Clinic Visit Date: 09/09/2019 CC: [...] (NASONEX) 50 mcg/actuation nasal spray Use 1 [place] in each nostri l every 4 (four) [...] mcg (0.1 %) nasal spray Use 1 [place] in each nostril 2 (two) t imes [...] N/A 05/12/2015 Surgeon: Alf Hoffmann MD; Location: [facility] OFF [place] CORONARY ARTERY BYPASS [...] CBC WITH DIFF - COMP. METABOLIC PANEL (29923); Future - ECHO ROUTINE W/DOPPLER COLOR Preferred Location: [place] ([facility]); Future - XR CHEST 2 VW; Future [...] (NASONEX) 50 mcg/actuation nasal spray; Use 1 [place] in each nostril every 4 (four) hours as needed (sinus congestion) for up to 30 days. 3. Coronary artery disease involving [place] coronary artery of [place] heart with out angina pectoris Chronic. Stable. Currently no chest pain, palpitations. -managed by cardiology. -Continue metoprolol, HCTZ, Aspirin, atorvastatin -LIPID PANEL (97268)(TOTAL CHOLESTEROL, TRIGLYCERIDES, HDL); Future 4. Obesity (BMI [...] Date Type Specialty Sergio Sanabria MD [address] [place] [phone] 11/24/2019 Office Visit Family Medicine Bushra Coles MD [address] [facility] [address] [place] [address] [phone] 07/07/2020 Office Visit Cardiology Date/Time Name Type Priority Associated Diagnoses 09/09/2019 12:12 PM CDT IRON PANEL LAB Add-on Dyspnea on exertion 09/09/2019 12:12 PM CDT FERRITIN SERUM LAB Add-on Dyspnea on exertion Order Schedule Name Type Priority Associated Diagnoses Expected: 09/10/2019, Expires: 09/09/2020 FERRITIN SERUM LAB Add-on Dyspnea on exertion Health Maintenance [...] on exertion 12:12 PM CDT LIPID PANEL (11072)(TOTAL Routine 09/09/2019 Abnormal findings on CHOLESTEROL, 12:12 PM CDT diagnostic imaging of TRIGLYCERIDES, HDL) other parts of digestive tract Dyspnea on exertion COMP. METABOLIC PANEL Routine 09/09/2019 Dyspnea on exertion (71668) 12:12 PM CDT THYROID STIMULATING Routine 09/09/2019 [...] cardiopulmonary abnormality Preliminary Report Dictated by Resident: Delory Craft MD., have reviewed this study and [...] 4.7Comment: Platelet count 1.2 - 10.7 % [facility] measured by fluorescence SERVICES method. NRBC/100 WBC 0.0 0.0 - 10.0 /100 WBCs [facility] NRBC x10^3 <0.01 10*3/L [facility] GRAN MAT (NEUT) 61.2 % [...] BASO x10^3 0.03 0.01 - 0.09 10*3/uL [facility] REACT LYMPHS Rare [facility] Specimen Blood - ARM, RIGHT Performing Organization Address City/State/Zipcode Phone Number [facility] CLIA: [id number], [address] [place] [address] [facility] * THYROID STIMULATING HORMONE (09/09/2019 12:12 PM CDT) TSH 2.10 0.45 - 4.70 mIU/L [facility] Specimen Blood - ARM, RIGHT Performing Organization Address City/State/Zipcode Phone Number [facility] CLIA: [id number], [address] [place] [address] [facility] * N-TERMINAL PRO-BNP (09/09/2019 12:12 PM CDT) NT-proBNP 42 <=125 pg/mL [facility] Specimen Blood - ARM, RIGHT Narrative Performed At [employer] has been reported to cause a negative bias, interpret results relative to [facility] patient's use of biotin. SERVICES Performing Organization Address City/[facility] Phone Number [facility] CLIA: [id number], [address] [place] [address] [facility] * GLYCOSYLATED HEMOGLOBIN (A1C) (09/09/2019 12:12 PM CDT) HGB A1C 5.3 4.0 - 6.0 % [facility] Specimen Blood - ARM, RIGHT Performing Organization Address [facility] Phone Number [facility] CLIA: [id number], [address] [place] [address] [facility] * LIPID PANEL (69449)(TOTAL CHOLESTEROL, TRIGLYCERIDES, HDL) (09/09/2019 12:12 PM CDT) CHOL 117 (L) 120 - 200 mg/dL [facility] HDL 46 >40 mg/dL [facility] HDLC RATIO 2.5 <=5.0 [facility] TRIG 72 30 - 170 mg/dL [facility] LDL CHOL 57 <=160 mg/dL [facility] VLDL 14 5 - 60 mg/dL [facility] Specimen Blood - ARM, RIGHT Performing Organization Address City/[facility] Phone Number [facility] CLIA: [id number], [address] [place] [address] [facility] * COMP. METABOLIC PANEL (83370) (09/09/2019 12:12 PM CDT) NA 139 135 - 145 mmol/L [facility] K 4.4 3.5 - 5.0 mmol/L [facility] CL 102 98 - 108 mmol/L [facility] CO2 TOTAL 27 23 - 31 mmol/L [facility] AGAP 10 2 - 16 [facility] BUN 14 7 - 23 mg/dL [facility] GLUCOSE 93 70 - 110 mg/dL [facility] CREATININE 0.97 0.60 - 1.25 mg/dL [facility] TOTAL BILI 1.2 (H) 0.1 - 1.1 mg/dL [facility] CALCIUM 9.6 8.6 - 10.6 mg/dL [facility] T PROTEIN 8.2 6.3 - 8.2 g/dL [facility] ALBUMIN 4.5 3.5 - 5.0 g/dL [facility] ALK PHOS 52 34 - 122 U/L [facility] ALTv 40 5 - 50 U/L [facility] AST(SGOT) 32 13 - 40 U/L [facility] eGFR 79.5 mL/min/1.73m2 [facility] Calculation SERVICES (Non-) eGFR 96.3 mL/min/1.73m2 [facility] Calculation SERVICES () Specimen Blood - ARM, RIGHT Narrative Performed At Association of Glomerular Filtration Rate (GFR) and Staging of Kidney Disease* [facility] + + + + SERVICES | [...] tests). Performing Organization Address City/State/Zipcode Phone Number [facility] CLIA: [id number], [address] [place], [place] [id number] documented in this encounter Visit Diagnoses Diagnosis Dyspnea on exertion - Primary Other dyspnea and respiratory abnormality Chronic pansinusitis Other chronic sinusitis Hearing abnormally acute, left Salpingitis of left eustachian tube Eustachian salpingitis, unspecified Coronary artery disease involving [place] coronary artery of [place] heart without angina pectoris Obesity (BMI 30-39.9) Obesity, unspecified Essential hypertension Unspecified essential hypertension Abnormal findings on diagnostic imaging of other parts of digestive tract Abnormal finding of blood chemistry, unspecified documented in this encounter Insurance Type Payer Benefit Subscriber ID Effective Phone Address Plan / Dates Group Medicare Adv PPO HUMANA - MANAGED MEDICARE HUMANA [id number] 2017-P [employer] resent documented as of this encounter
--- OUTSIDE RECORDS SUMMARY | 2019-09-15 13:11 | XMS REPORT | Summary of Care ---
Author Author [facility] - Health Organization [facility] - Health Address Unknown Phone Unavailable Care Team Providers Care Jack Spooler Tender Name Role Phone Rojelio Tarango MD PCP Reason for Referral * (Routine) Referred By Contact Referred To Contact Status Reason Specialty Diagnoses / Procedures Billy Kearney DO [address] [place] [address] New Request Cardiology Diagnoses Dyspnea on exertion P rocedures ECHO ROUTINE W/DOPPLER COLOR Preferred Location: [place] ([facility]) Reason for Visit * Reason Comments Congestion Shortness of Breath Encounter Details Care Team Description Date Type Department Billy Kearney DO [address] [place] [address] Sergio Sanabria MD [address] [place] [phone] Dyspnea on exertion (Primary Dx); Chronic pansinusitis; Hearing abnormally acute, left; Salpingitis of left eustachian tube; Coronary artery disease involving [place] coronary artery of seneca heart without angina pectoris; Obesity (BMI 30-39.9); Essential hypertension; Abnormal findings on diagnostic imaging of other parts of digestive tract ; Abnormal finding of blood chemistry, unspecified 09/09/2019 Office Visit [facility], [address], [address] [place] [address] Allergies No Known Allergiesdocumented as [...] Active azelastine 137 mcg (0.1 Use 1 [place] 30 mL 3 %) nasal in each [...] 0 Coronary artery disease (two) times involving seneca coronary daily. artery of seneca heart without angina pectoris Active atorvastatin 40 mg Take 1 tablet 90 tablet 3 tabletIndications: by mouth at 0 Coronary artery disease bedtime. involving sen[place] coronary artery of seneca heart without angina pectoris Active hydroCHLOROthiazide 12.5 Take 1 90 capsule 1 mg capsuleIndications: capsule by 0 Essential hypertension mouth daily. 10/09/2019 Active mometasone (NASONEX) 50 Use 1 [place] 17 g 0 mcg/actuation nasal in each 0 sprayIndications: Dyspnea nostril every on exertion 4 (four) hours as needed (sinus congestion) for up to 30 days. 09/09/2019 Discontinued (Duplicate) fluticasone 50 Use 1 [place] 16 g 0 mcg/actuation nasal in each 9 sprayIndications: Acute nostril bronchitis, unspecified daily. organism 09/09/2019 Discontinued (Reorder) hydroCHLOROthiazide 12.5 Take 1 90 capsule 1 mg capsule capsule by 9 mouth daily. 09/09/2019 Discontinued (Error) fluticasone propionate 50 Use 1 [place] 16 g 0 mcg/actuation nasal in each [...] pain 11/15/2011 10/20/2018 Overview: ICD10 Diagnosis Term Rehab Manager Utility Other chronic otitis externa 11/12/2006 10/20/2018 [...] procedure well. Labs were sent to [facility]'s main lab per lab order [...] (NASONEX) 50 mcg/actuation nasal spray Use 1 [place] in each nostri l every 4 (four) [...] mcg (0.1 %) nasal spray Use 1 [place] in each nostril 2 (two) t imes [...] N/A 05/12/2015 Surgeon: Alf Hoffmann MD; Location: [facility] CORONARY ARTERY BYPASS GRAFTING [...] CBC WITH DIFF - COMP. METABOLIC PANEL (21934); Future - ECHO ROUTINE W/DOPPLER COLOR Preferred Location: [place] ([facility]); Future - XR CHEST 2 VW; [...] (NASONEX) 50 mcg/actuation nasal spray; Use 1 [place] in each nostril every 4 (four) hours as needed (sinus congestion) for up to 30 days. 3. Coronary artery disease involving seneca coronary artery of seneca heart with out angina pectoris Chronic. Stable. Currently no chest pain, palpitations. -managed by cardiology. -Continue metoprolol, HCTZ, Aspirin, atorvastatin -LIPID PANEL (33336)(TOTAL CHOLESTEROL, TRIGLYCERIDES, HDL); Future 4. Obesity (BMI [...] Description Date Type Specialty Sergio Sanabria MD [address] [place] [phone] 11/24/2019 Office Visit Family Medicine Bushra Coles MD [address] [place] [address] [place] [address] [phone] 07/07/2020 Office Visit Cardiology Date/Time Name Type [...] on exertion 12:12 PM CDT LIPID PANEL (80114)(TOTAL Routine 09/09/2019 Abnormal findings on CHOLESTEROL, 12:12 PM CDT diagnostic imaging of TRIGLYCERIDES, HDL) other parts of digestive tract Dyspnea on exertion COMP. METABOLIC PANEL Routine 09/09/2019 Dyspnea on exertion (56745) 12:12 PM CDT THYROID STIMULATING Routine 09/09/2019 [...] SERVICES PLT 161 150 - 328 10*3/L [facility] MPV 10.7 9.8 - 13.0 fL [facility] IPF % 4.7Comment: Platelet count 1.2 - 10.7 % [facility] measured by fluorescence SERVICES method. NRBC/100 WBC 0.0 0.0 - 10.0 /100 WBCs [facility] NRBC x10^3 <0.01 10*3/L [facility] GRAN MAT (NEUT) 61.2 % [...] BASO x10^3 0.03 0.01 - 0.09 10*3/uL [facility] REACT LYMPHS Rare [facility] Specimen Blood - ARM, RIGHT Performing Organization Address City/[facility]/Zipcode Phone Number [facility] CLIA: [id number], [address] [place] [address] [facility] * THYROID STIMULATING HORMONE (09/09/2019 12:12 PM CDT) TSH 2.10 0.45 - 4.70 mIU/L [facility] Specimen Blood - ARM, RIGHT Performing Organization Address [facility]/Zipcode Phone Number [facility] CLIA: [id number], [address] [place] [address] [facility] * N-TERMINAL PRO-BNP (09/09/2019 12:12 PM CDT) NT-proBNP 42 <=125 pg/mL [facility] SERVICES Specimen Blood - ARM, RIGHT Narrative Performed At [employer] has been reported to cause a negative bias, interpret results relative to [facility] patient's use of biotin. SERVICES Performing Organization Address City/State/Zipcode Phone Number [facility] CLIA: [id number], [address] [place] [address] [facility] * GLYCOSYLATED HEMOGLOBIN (A1C) (09/09/2019 12:12 PM CDT) HGB A1C 5.3 4.0 - 6.0 % [facility] Specimen Blood - ARM, RIGHT Performing Organization Address City/State/Zipcode Phone Number [facility] CLIA: [id number], [address] [place] [address] [facility] * LIPID PANEL (40880)(TOTAL CHOLESTEROL, TRIGLYCERIDES, HDL) (09/09/2019 12:12 PM CDT) CHOL 117 (L) 120 - 200 mg/dL [facility] HDL 46 >40 mg/dL [facility] HDLC RATIO 2.5 <=5.0 [facility] TRIG 72 30 - 170 mg/dL [facility] LDL CHOL 57 <=160 mg/dL [facility] VLDL 14 5 - 60 mg/dL [facility] Specimen Blood - ARM, RIGHT Performing Organization Address City/[facility] Phone Number [facility] CLIA: [id number], [address] [place] [address] [facility] * COMP. METABOLIC PANEL (16964) (09/09/2019 12:12 PM CDT) NA 139 135 - 145 mmol/L [facility] K 4.4 3.5 - 5.0 mmol/L [facility] CL 102 98 - 108 mmol/L [facility] CO2 TOTAL 27 23 - 31 mmol/L [facility] AGAP 10 2 - 16 [facility] BUN 14 7 - 23 mg/dL [facility] GLUCOSE 93 70 - 110 mg/dL [facility] CREATININE 0.97 0.60 - 1.25 mg/dL [facility] TOTAL BILI 1.2 (H) 0.1 - 1.1 mg/dL [facility] CALCIUM 9.6 8.6 - 10.6 mg/dL [facility] T PROTEIN 8.2 6.3 - 8.2 g/dL [facility] ALBUMIN 4.5 3.5 - 5.0 g/dL [facility] ALK PHOS 52 34 - 122 U/L [facility] ALTv 40 5 - 50 U/L [facility] AST(SGOT) 32 13 - 40 U/L [facility] eGFR 79.5 mL/min/1.73m2 [facility] Calculation SERVICES (Non-) eGFR 96.3 mL/min/1.73m2 [facility] Calculation SERVICES () Specimen Blood - ARM, RIGHT Narrative Performed At Association of Glomerular Filtration Rate (GFR) and Staging of Kidney Disease* [facility] + + + + SERVICES [...] tests). Performing Organization Address City/State/Zipcode Phone Number [facility] CLIA: [id number], [address] [place] [address] [facility] documented in this encounter Visit Diagnoses Diagnosis Dyspnea on exertion - Primary Other dyspnea and respiratory abnormality Chronic pansinusitis Other chronic sinusitis Hearing abnormally acute, left Salpingitis of left eustachian tube Eustachian salpingitis, unspecified Coronary artery disease involving seneca coronary artery of seneca heart without angina pectoris Obesity (BMI 30-39.9) Obesity, unspecified Essential hypertension Unspecified essential hypertension Abnormal findings on diagnostic imaging of other parts of digestive tract Abnormal finding of blood chemistry, unspecified documented in this encounter Insurance Type Payer Benefit Subscriber ID Effective Phone Address Plan / Dates Group Medicare Adv PPO HUMANA - MANAGED MEDICARE HU[employer]NA [id number] 2017Sofia tavares documented as of this encounter
--- OUTSIDE RECORDS SUMMARY | 2019-09-15 13:11 | XMS REPORT | Summary of Care ---
Author Author [facility] - Health Organization [facility] - Health Address Unknown Phone Unavailable Care Team Providers Care Monologist Name Role Phone Sergio Sanabria MD PCP Reason for Visit * Reason Comments Assessment COLD SYMPTOMS zpack Encounter Details Care Team Description Date Type Department Sergio Sanabria MD [address] [place] [phone] Assessment; COLD SYMPTOMS (zpack ) 09/13/[address], [address] [place] [address] Allergies No Known Allergiesdocumented as [...] 0 Coronary artery disease (two) times involving [place] coronary daily. artery of [place] heart without angina pectoris Active atorvastatin 40 mg Take 1 tablet 90 tablet 3 tabletIndications: by mouth at 0 Coronary artery disease bedtime. involving [place] coronary artery of [place] heart without angina pectoris Active hydroCHLOROthiazide 12.5 Take 1 90 capsule 1 mg capsuleIndications: capsule by 0 Essential hypertension mouth daily. 10/09/2019 Active mometasone (NASONEX) 50 Use 1 [place] 17 g 0 mcg/actuation nasal in each 0 sprayIndications: Dyspnea nostril every on exertion 4 (four) hours as needed (sinus congestion) for up to 30 days. Active azelastine 137 mcg (0.1 Use 1 [place] 30 mL 3 %) nasal in each 0 sprayIndications: nostril 2 Salpingitis of left (two) times eustachian tube daily. Use in each nostril as directed 09/13/2019 Discontinued (Reorder) azelastine 137 mcg (0.1 Use 1 [place] 30 mL 3 %) nasal in each [...] pain 11/15/2011 10/20/2018 Overview: ICD10 Diagnosis Term Rfid Manager Utility Other chronic otitis externa 11/12/2006 [...] Date Type Specialty Sergio Sanabria MD [address] [place] [phone] 11/24/2019 Office Visit Family Medicine Bushra Coles MD [address] [place] [address] [address] [place], [place] [address] 07/07/2020 Office Visit Cardiology Health Maintenance Due [...] filedocumented in this encounter Visit Diagnoses Diagnosis Salpingitis of left eustachian tube Eustachian salpingitis, unspecified documented in this encounter Insurance Type Payer Benefit Subscriber ID Effective Phone Address Plan / Dates Group Medicare Adv PPO HUMANA - MANAGED MEDICARE HU[employer]NA [id number] CHOICE resent documented as of this encounter
--- OUTSIDE RECORDS SUMMARY | 2019-09-15 13:11 | XMS REPORT | Summary of Care ---
Author Author [facility] - Health Organization [facility] - Health Address Unknown Phone Unavailable Care Team Providers Care Senior Electrical Estimator Name Role Phone Rojelio Tarango MD PCP Sergio Sanabria MD PCP Reason for Referral * (Routine) Referred By Contact Referred To Contact Status Reason Specialty Diagnoses / Procedures Billy Kearney DO [address] [place] [address] New Request Cardiology Diagnoses Dyspnea on exertion P rocedures ECHO ROUTINE W/DOPPLER COLOR Preferred Location: [facility] ([facility]) Reason for Visit * Reason Comments Congestion Shortness of Breath Encounter Details Care Team Description Date Type Department Billy Kearney DO [address] [place] [address] Sergio Sanabria MD [address] [place] [phone] Dyspnea on exertion (Primary Dx); Chronic pansinusitis; Hearing abnormally acute, left; Salpingitis of left eustachian tube; Coronary artery disease involving [place] coronary artery of [place] heart without angina pectoris; Obesity (BMI 30-39.9); Essential hypertension; Abnormal findings on diagnostic imaging of other parts of digestive tract ; Abnormal finding of blood chemistry, unspecified 09/09/2019 Office Visit Formerly [facility], [address], [address] [place] [address] Allergies No Known Allergiesdocumented as [...] Active azelastine 137 mcg (0.1 Use 1 [place] 30 mL 3 %) nasal in each [...] 0 Coronary artery disease (two) times involving [place] coronary daily. artery of [place] heart without angina pectoris Active atorvastatin 40 mg Take 1 tablet 90 tablet 3 tabletIndications: by mouth at 0 Coronary artery disease bedtime. involving [place] coronary artery of [place] heart without angina pectoris Active hydroCHLOROthiazide 12.5 Take 1 90 capsule 1 mg capsuleIndications: capsule by 0 Essential hypertension mouth daily. 10/09/2019 Active mometasone (NASONEX) 50 Use 1 [place] 17 g 0 mcg/actuation nasal in each 0 sprayIndications: Dyspnea nostril every on exertion 4 (four) hours as needed (sinus congestion) for up to 30 days. 09/09/2019 Discontinued (Duplicate) fluticasone 50 Use 1 [place] 16 g 0 mcg/actuation nasal in each 9 sprayIndications: Acute nostril bronchitis, unspecified daily. organism 09/09/2019 Discontinued (Reorder) hydroCHLOROthiazide 12.5 Take 1 90 capsule 1 08/12/201 mg capsule capsule by 9 mouth daily. 09/09/2019 Discontinued (Error) fluticasone propionate 50 Use 1 [place] 16 g 0 mcg/actuation nasal in each [...] pain 11/15/2011 10/20/2018 Overview: ICD10 Diagnosis Term Generation Manager Utility Other chronic otitis externa 11/12/2006 [...] the procedure well. Labs were sent to [facility]'s main lab per lab order o [...] (NASONEX) 50 mcg/actuation nasal spray Use 1 [place] in each nostri l every 4 (four) [...] mcg (0.1 %) nasal spray Use 1 [place] in each nostril 2 (two) t imes [...] N/A 05/12/2015 Surgeon: Alf Hoffmann MD; Location: [facility] OFF PUMP CORONARY ARTERY BYPASS GRAFTING [...] CBC WITH DIFF - COMP. METABOLIC PANEL (20410); Future - ECHO ROUTINE W/DOPPLER COLOR Preferred Location: [facility] ([facility]); Future - XR CHEST 2 VW; [...] (NASONEX) 50 mcg/actuation nasal spray; Use 1 [place] in each nostril every 4 (four) hours as needed (sinus congestion) for up to 30 days. 3. Coronary artery disease involving [place]' coronary artery of [place] heart with out angina pectoris Chronic. Stable. Currently no chest pain, palpitations. -managed by cardiology. -Continue metoprolol, HCTZ, Aspirin, atorvastatin -LIPID PANEL (52572)(TOTAL CHOLESTEROL, TRIGLYCERIDES, HDL); Future 4. Obesity (BMI [...] Description Date Type Specialty Sergio Sanabria MD [address] [place] [phone] 11/24/2019 Office Visit Family Medicine Bushra Coles MD [address] [facility] [address] [place] [address] [phone] 07/07/2020 Office Visit Cardiology Order Schedule Name Type Priority Associated Diagnoses Expected: 09/10/2019, Expires: 09/09/2020 BILI UNCONJUGATED/BILI LAB Add-on Abnormal finding of blood CONJUG chemistry, unspecified Health Maintenance Due Date Last Done Comments [...] 09/09/2019 Dyspnea on exertion 12:12 PM CDT IRON PANEL Add-on 09/09/2019 Dyspnea on exertion 12:12 PM CDT LIPID PANEL (92016)(TOTAL Routine 09/09/2019 Abnormal findings on CHOLESTEROL, 12:12 PM CDT diagnostic imaging of TRIGLYCERIDES, HDL) other parts of digestive tract Dyspnea on exertion COMP. METABOLIC PANEL Routine 09/09/2019 Dyspnea on exertion (40604) 12:12 PM CDT THYROID STIMULATING Routine 09/09/2019 Dyspnea on exertion HORMONE 12:12 PM CDT FERRITIN SERUM Add-on 09/09/2019 Dyspnea on exertion 12:12 PM CDT documented in this encounter [...] over the left arterial appendix. Procedure Note [facility], Radiant Results Inft User - 09/09/2019 1:05 [...] Organization Address City/State/Zipcode Phone Number PACS/VR/DOSE * FERRITIN SERUM (09/09/2019 12:12 PM CDT) FERRITIN 360.0 18.0 - 464.0 ng/mL [facility] Specimen Blood - ARM, RIGHT Narrative Performed At [employer] has been reported to cause a negative bias, interpret results relative to [facility] patient's use of biotin. SERVICES Performing Organization Address City/State/Zipcode Phone Number [facility] CLIA: [id number], [address] [place] [address] [facility] * IRON PANEL (09/09/2019 12:12 PM CDT) IRON 87 50 - 160 ug/dL [facility] TIBC 262 250 - 410 ug/dL [facility] % FE SAT 33 20 - 50 % [facility] Specimen Blood - ARM, RIGHT Performing Organization Address City/State/Zipcode Phone Number [facility] CLIA: [id number], [address] [place] [address] [facility] * CBC WITH DIFFERENTIAL (09/09/2019 12:12 PM CDT) WBC 5.43 4.20 - 10.70 [facility] 10*3/L SERVICES RBC 6.34 (H) 4.26 - 5.52 10*6/L [facility] HGB 15.2 12.2 - 16.4 g/dL [facility] HCT 45.5 38.4 - 49.3 % [facility] MCV 71.8 (L) 81.7 - 95.6 fL [facility] MCH 24.0 (L) 26.1 - 32.7 pg [facility] MCHC 33.4 31.2 - 35.0 g/dL [facility] RDW-SD 40.2 38.5 - 51.6 fL [facility] RDW-CV 17.7 (H) 12.1 - 15.4 % [facility] PLT 161 150 - 328 10*3/L [facility] MPV 10.7 9.8 - 13.0 fL [facility] IPF % 4.7Comment: Platelet count 1.2 - 10.7 % [facility] measured by fluorescence SERVICES method. NRBC/100 WBC 0.0 0.0 - 10.0 /100 WBCs [facility] NRBC x10^3 <0.01 10*3/L [facility] GRAN MAT (NEUT) 61.2 % [facility] % SERVICES IMM GRAN % 0.20 % [facility] LYMPH % 27.8 % [facility] MONO % 8.5 % [facility] EOS % 1.7 % [facility] BASO % 0.6 % [facility] GRAN MAT 3.33 1.99 - 6.95 10*3/uL [facility] x10^3(ANC) SERVICES IMM GRAN x10^3 <0.03 0.00 - 0.06 10*3/uL [facility] LYMPH x10^3 1.51 1.09 - 3.23 10*3/uL [facility] MONO x10^3 0.46 0.36 - 1.02 10*3/uL [facility] EOS x10^3 0.09 0.06 - 0.53 10*3/uL [facility] BASO x10^3 0.03 0.01 - 0.09 10*3/uL [facility] REACT LYMPHS Rare [facility] Specimen Blood - ARM, RIGHT Performing Organization Address City/[facility] Phone Number [facility] CLIA: [id number], [address] [place] [address] [facility] * THYROID STIMULATING HORMONE (09/09/2019 12:12 PM CDT) TSH 2.10 0.45 - 4.70 mIU/L [facility] Specimen Blood - ARM, RIGHT Performing Organization Address City/[facility] Phone Number [facility] CLIA: [id number], [address] [place] [address] [facility] * N-TERMINAL PRO-BNP (09/09/2019 12:12 PM CDT) NT-proBNP 42 <=125 pg/mL [facility] Specimen Blood - ARM, RIGHT Narrative Performed At [employer] has been reported to cause a negative bias, interpret results relative to [facility] patient's use of biotin. SERVICES Performing Organization Address City/State/Zipcode Phone Number [facility] CLIA: [id number], [address] [place] [address] [facility] * GLYCOSYLATED HEMOGLOBIN (A1C) (09/09/2019 12:12 PM CDT) HGB A1C 5.3 4.0 - 6.0 % [facility] Specimen Blood - ARM, RIGHT Performing Organization Address City/State/Zipcode Phone Number [facility] CLIA: [id number], [address] [place] [address] [facility] * LIPID PANEL (15133)(TOTAL CHOLESTEROL, TRIGLYCERIDES, HDL) (09/09/2019 12:12 PM CDT) CHOL 117 (L) 120 - 200 mg/dL [facility] HDL 46 >40 mg/dL [facility] HDLC RATIO 2.5 <=5.0 [facility] TRIG 72 30 - 170 mg/dL [facility] LDL CHOL 57 <=160 mg/dL [facility] VLDL 14 5 - 60 mg/dL [facility] Specimen Blood - ARM, RIGHT Performing Organization Address City/State/Zipcode Phone Number [facility] CLIA: [id number], [address] [place] [address] [facility] * COMP. METABOLIC PANEL (90348) (09/09/2019 12:12 PM CDT) NA 139 135 - 145 mmol/L [facility] K 4.4 3.5 - 5.0 mmol/L [facility] CL 102 98 - 108 mmol/L [facility] CO2 TOTAL 27 23 - 31 mmol/L [facility] AGAP 10 2 - 16 [facility] BUN 14 7 - 23 mg/dL [facility] GLUCOSE 93 70 - 110 mg/dL [facility] CREATININE 0.97 0.60 - 1.25 mg/dL [facility] TOTAL BILI 1.2 (H) 0.1 - 1.1 mg/dL [facility] CALCIUM 9.6 8.6 - 10.6 mg/dL [facility] T PROTEIN 8.2 6.3 - 8.2 g/dL [facility] ALBUMIN 4.5 3.5 - 5.0 g/dL [facility] ALK PHOS 52 34 - 122 U/L [facility] ALTv 40 5 - 50 U/L [facility] AST(SGOT) 32 13 - 40 U/L [facility] eGFR 79.5 mL/min/1.73m2 [facility] Calculation SERVICES (Non-) eGFR 96.3 mL/min/1.73m2 [facility] Calculation SERVICES () Specimen Blood - ARM, RIGHT Narrative Performed At Association of Glomerular Filtration Rate (GFR) and Staging of Kidney Disease* [facility] + + + + SERVICES [...] tests). Performing Organization Address City/State/Zipcode Phone Number [facility] CLIA: [id number], [address] [place] [address] [facility] documented in this encounter Visit Diagnoses Diagnosis Dyspnea on exertion - Primary Other dyspnea and respiratory abnormality Chronic pansinusitis Other chronic sinusitis Hearing abnormally acute, left Salpingitis of left eustachian tube Eustachian salpingitis, unspecified Coronary artery disease involving [place] de[place]-ni' coronary artery of [place]-ni' heart without angina pectoris Obesity (BMI 30-39.9) Obesity, unspecified Essential hypertension Unspecified essential hypertension Abnormal findings on diagnostic imaging of other parts of digestive tract Abnormal finding of blood chemistry, unspecified documented in this encounter Insurance Type Payer Benefit Subscriber ID Effective Phone Address Plan / Dates Group Medicare Adv PPO HUMANA - MANAGED MEDICARE HUMANA [id number] 2017-P CHOICE resent documented as of this encounter
--- OUTSIDE RECORDS SUMMARY | 2019-09-15 13:11 | XMS REPORT | Summary of Care ---
Author Author [facility] - Health Organization [facility] - Health Address Unknown Phone Unavailable Care Team Providers Care Tire Specialist Name Role Phone Sergio Sanabria MD PCP Reason for Visit * Reason Comments Chest Pain shortness of breath Encounter Details Care Team Description Date Type Department Nina Marcus, RN [address] [place] [address] Chest Pain (shortness of breath) 09/15/2019 Nurse Triage [facility] [address] [place] [id number] Allergies No Known Allergiesdocumented as of this [...] 0 Coronary artery disease (two) times involving [place] coronary daily. artery of [place] heart without angina pectoris Active atorvastatin 40 mg Take 1 tablet 90 tablet 3 tabletIndications: by mouth at 0 Coronary artery disease bedtime. involving [place] coronary artery of [place] heart without angina pectoris Active hydroCHLOROthiazide 12.5 Take 1 90 capsule 1 mg capsuleIndications: capsule by 0 Essential hypertension mouth daily. 10/09/2019 Active mometasone (NASONEX) 50 Use 1 [place] 17 g 0 mcg/actuation nasal in each 0 sprayIndications: Dyspnea nostril every on exertion 4 (four) hours as needed (sinus congestion) for up to 30 days. Active azelastine 137 mcg (0.1 Use 1 [place] 30 mL 3 %) nasal in each [...] pain 11/15/2011 10/20/2018 Overview: ICD10 Diagnosis Term Certified Surgical First Assistant Utility Other chronic otitis externa 11/12/2006 10/20/2018 [...] Description Date Type Specialty Sergio Sanabria MD [address] [place] [phone] 11/24/2019 Office Visit Family Medicine Bushra Coles MD [address] [place] [address] [address] [place] [address] [phone] 07/07/2020 Office Visit Cardiology Health Maintenance Due [...] Adv PPO HUMANA - MANAGED MEDICARE HUMANA [id number] 2017-P CHOICE resent documented as of this encounter
--- OUTSIDE RECORDS SUMMARY | 2019-09-15 13:11 | XMS REPORT | Summary of Care ---
Author Author [facility] - Health Organization [facility] - Health Address Unknown Phone Unavailable Care Team Providers Care Automatic Centrifugal Station Operator Name Role Phone Sergio Sanabria MD PCP Reason for Visit * Reason Comments Assessment COLD SYMPTOMS zpack Encounter Details Care Team Description Date Type Department Sergio Sanabria MD [address] [place] [phone] Assessment; COLD SYMPTOMS (zpack ) 09/13/[address], [address] [place] [address] Allergies No Known Allergiesdocumented as [...] 0 Coronary artery disease (two) times involving [place] coronary daily. artery of [place] heart without angina pectoris Active atorvastatin 40 mg Take 1 tablet 90 tablet 3 tabletIndications: by mouth at 0 Coronary artery disease bedtime. involving [place] coronary artery of [place] heart without angina pectoris Active hydroCHLOROthiazide 12.5 Take 1 90 capsule 1 mg capsuleIndications: capsule by 0 Essential hypertension mouth daily. 10/09/2019 Active mometasone (NASONEX) 50 Use 1 [place] 17 g 0 mcg/actuation nasal in each 0 sprayIndications: Dyspnea nostril every on exertion 4 (four) hours as needed (sinus congestion) for up to 30 days. Active azelastine 137 mcg (0.1 Use 1 [place] 30 mL 3 %) nasal in each 0 sprayIndications: nostril 2 Salpingitis of left (two) times eustachian tube daily. 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
--- OUTSIDE RECORDS SUMMARY | 2019-09-15 13:11 | XMS REPORT | Summary of Care ---
Author Author [facility] - Health Organization [facility] - Health Address Unknown Phone Unavailable Care Team Providers Care Net Software Engineer Name Role Phone Sergio Sanabria MD PCP Reason for Visit * Reason Comments Results Encounter Details Care Team Description Date Type Department Sergio Sanabria MD [address] [place] [phone] Results 09/13/[address], [address] [place] [address] Allergies No Known Allergiesdocumented as [...] Active azelastine 137 mcg (0.1 Use 1 [place] 30 mL 3 %) nasal in each [...] 0 Coronary artery disease (two) times involving [place] coronary daily. artery of [place] heart without angina pectoris Active atorvastatin 40 mg Take 1 tablet 90 tablet 3 tabletIndications: by mouth at 0 Coronary artery disease bedtime. involving [place] coronary artery of [place] heart without angina pectoris Active hydroCHLOROthiazide 12.5 Take 1 90 capsule 1 mg capsuleIndications: capsule by 0 Essential hypertension mouth daily. 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
--- OUTSIDE RECORDS SUMMARY | 2019-09-15 13:11 | XMS REPORT | Summary of Care ---
Author Author [facility] - Health Organization [facility] - Health Address Unknown Phone Unavailable Care Team Providers Care Data Science And Iot Manager Name Role Phone Sergio Sanabria MD PCP Reason for Visit * Reason Comments Assessment COLD SYMPTOMS zpack Encounter Details Care Team Description Date Type Department Sergio Sanabria MD [address] [place] [phone] Assessment; COLD SYMPTOMS (zpack ) 09/13/[address], [address] [place] [address] Allergies No Known Allergiesdocumented as [...] 0 Coronary artery disease (two) times involving [place] coronary daily. artery of [place] heart without angina pectoris Active atorvastatin 40 mg Take 1 tablet 90 tablet 3 tabletIndications: by mouth at 0 Coronary artery disease bedtime. involving [place] coronary artery of [place] heart without angina pectoris Active hydroCHLOROthiazide 12.5 Take 1 90 capsule 1 mg capsuleIndications: capsule by 0 Essential hypertension mouth daily. 10/09/2019 Active mometasone (NASONEX) 50 Use 1 [place] 17 g 0 mcg/actuation nasal in each 0 sprayIndications: Dyspnea nostril every on exertion 4 (four) hours as needed (sinus congestion) for up to 30 days. Active azelastine 137 mcg (0.1 Use 1 [place] 30 mL 3 %) nasal in each 0 sprayIndications: nostril 2 Salpingitis of left (two) times eustachian tube daily. 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
[2019-09-15 13:43] LABS: BASOPHILS % 0.5 % (0.0-1.0); EOSINOPHILS # (AUTO) 0.1 (0.0-0.4); EOSINOPHILS % 1.6 % (0.0-6.0); HEMATOCRIT 46.1 % (38.2-49.6); HEMOGLOBIN 15.8 g/dL (14.0-18.0); LYMPHOCYTES # (AUTO) 1.7 (1.0-3.2); LYMPHOCYTES % 30.8 % (18.0-39.1); MEAN CORPUSCULAR HEMOGLOBIN 24.4 pg (28-32); MEAN CORPUSCULAR HGB CONC 34.3 g/dL (31-35); MEAN CORPUSCULAR VOLUME 71.3 fL (81-99); MONOCYTES # (AUTO) 0.5 (0.2-0.8); MONOCYTES % 8.5 % (4.4-11.3); NEUTROPHILS # (AUTO) 3.3 (2.1-6.9); NEUTROPHILS % 58.4 % (38.7-80.0); PLATELET COUNT 200 x10e3/uL (140-360); RED BLOOD COUNT 6.47 x10e6/uL (4.3-5.7); RED CELL DISTRIBUTION WIDTH 17.6 % (11.7-14.4)
[2019-09-15 14:08] LABS: STREPTOCOCCUS GRP A ANTIGEN NEGATIVE (NEGATIVE)
[2019-09-15 14:09] LABS: INFLUENZAE A&B ANTIGEN (RAPID) NEGATIVE (NEGATIVE)
[2019-09-15 14:11] LABS: ALANINE AMINOTRANSFERASE 27 IU/L (0-55); ALBUMIN 4.4 g/dL (3.5-5.0); ALBUMIN/GLOBULIN RATIO 1.3 (0.8-2.0); ALKALINE PHOSPHATASE 47 IU/L (40-150); ANION GAP 11.2 mmol/L (8-16); BLOOD UREA NITROGEN 11 mg/dL (7-26); BUN/CREATININE RATIO 11 (6-25); CALCIUM 9.6 mg/dL (8.4-10.2); CARBON DIOXIDE 26 mmol/L (22-29); CHLORIDE 106 mmol/L (98-107); CREATINE KINASE 193 IU/L (30-200); CREATININE, SERUM 1.02 mg/dL (0.72-1.25); EST GLOMERULAR FILTRATION RATE > 60 ML/MIN (60-); GLUCOSE 108 mg/dL (74-118); POTASSIUM 4.2 mmol/L (3.5-5.1); SODIUM 139 mmol/L (136-145)
[2019-09-15 14:12] LABS: INR 1.01; PROTHROMBIN TIME 13.9 seconds (11.9-14.5)
[2019-09-15 14:13] LABS: PARTIAL THROMBOPLASTIN TIME 57.8 seconds (23.8-35.5)
--- NOTE | 2019-09-15 14:36 | Diagnostic Imaging Report ---
EXAMINATION: CHEST SINGLE (PORTABLE) INDICATION: Cough COMPARISON: None FINDINGS: LINES/TUBES:None LUNGS:The lungs are well-inflated. No focal consolidation or pulmonary edema. PLEURA:No pleural effusion or pneumothorax. MEDIASTINUM:The cardiomediastinal silhouette appears normal in size and shape. BONES/SOFT TISSUES:No acute osseous injury. Sternotomy wires. ABDOMEN:No free air under the diaphragm. IMPRESSION: No focal pneumonia or pulmonary edema. Signed by: Chandu Chaney MD on 09/15/2019 2:33 PM
[2019-09-15 15:45] VITALS: BP 113/78
--- NOTE | 2019-09-15 15:45 | NUR ---
pt arrived from ER via wheelchair in stable condition to room 202. pt awake, alert, oriented x3, ambulatory, IV intact and patent. pt has no complaints at this time.
[2019-09-15 16:05] VITALS: BP 134/83
[2019-09-15] MEDS ORDERED: ASPIRIN CHEW81 MG PO (16:08)
[2019-09-15 16:14] VITALS: BP 134/83
[2019-09-15] MEDS ORDERED: METOPROLOL TARTRATE 25 MG TAB PO SCH (17:00)
--- NOTE | 2019-09-15 19:00 | Consultation ---
DATE OF CONSULTATION: 09/15/2019 REASON FOR CONSULTATION: Chest pain. CHIEF COMPLAINT: Shortness of breath and chest pain. HISTORY OF PRESENT ILLNESS: This is a 58-year-old male with history of CAD status post CABG two-vessel in 2015 at [facility], hypertension, hyperlipidemia, CARMENCITA not on CPAP therapy. The patient presents to [facility] ER with complaints of shortness of breath for about one week and intermittent chest pain for the past 24 hours. Cardiology is consulted given the patient's history. The patient is seen in room, in no acute distress. Reports for the past one week has been short of breath with congestion. Saw his primary care physician about one week ago, was given nasal sprays, in which the symptoms did not improve. Therefore, he drove to [place] and presented to the ER. The patient also reports for the past 24 hours has felt some chest congestion/heaviness, nonradiating, lasting few minutes to hours and relieved on its own, nonexertional. The patient was concerned also therefore he came to the ER for the above symptoms. Currently, the patient is chest pain-free. Cardiac enzymes initially 0.017. EKG showing first-degree AV block with PACs. At this time, the patient is comfortable. PAST MEDICAL HISTORY: CAD, status post CABG x2 in 2015, hypertension, hyperlipidemia, and CARMENCITA. PAST SURGICAL HISTORY: CABG x2 in 2015, [facility]. SOCIAL HISTORY: He is single and disabled. He denies any alcohol or tobacco use. FAMILY HISTORY: Mother with a history of CAD status post CABG. Father with history of lung cancer. HOME MEDICATIONS: Includes metoprolol 25 mg twice a day, atorvastatin 40 mg daily, hydrochlorothiazide 12.5 mg daily, aspirin 81 mg daily, fluticasone inhaler and azelastine inhaler. ALLERGIES: NO KNOWN ALLERGIES. REVIEW OF SYSTEMS: GENERAL: Denies any weight changes, fatigue, weakness, fevers, chills, or night sweats. SKIN: No rashes or sores. HEENT: Denies any nausea, vomiting, vision change, blurred vision, double vision, epistaxis, sore throat, swollen neck, or bleeding gums. CARDIAC: Positive for chest pain as above. Denies any palpitations. Positive for dyspnea on exertion. No orthopnea, PND, or lower extremity edema. RESPIRATORY: Positive for shortness of breath. Positive for congestion. Positive for intermittent cough, dry. Denies any hemoptysis. GI: Reports good appetite. No nausea, vomiting, diarrhea, constipation, melena, or tarry bloody stools. URINARY: Denies any frequency, urgency, dysuria, or hematuria. MUSCULOSKELETAL: Denies any muscle weakness. Positive for generalized joint pains, back pain. NEUROLOGIC: Denies any numbness, tingling, tremors, paralysis, or weakness. VASCULAR: Denies any lower extremity edema or claudication. HEMATOLOGY: Denies any anemia or bruising. ENDOCRINE: Denies any heat or cold intolerance, polyuria, polydipsia, or polyphagia. PHYSICAL EXAMINATION: VITAL SIGNS: Height 78 inches, weight 274 pounds. Temperature 96.3, pulse 56, respiratory rate 19, blood pressure 134/83, and pulse ox 99% on room air. GENERAL: Appears stated age, reliable informant, in no acute distress. SKIN: No rashes or bruises. HEENT: Normocephalic. Pupils are equal and reactive. Extraocular movement intact. Trachea midline. Oral mucosa pink. No JVD or carotid bruit appreciated. HEART: Regular rate and rhythm. No murmurs or clicks appreciated. Sternotomy scar noted. LUNGS: Bilateral breath sounds clear to auscultation. No wheezing, no rales are noted. ABDOMEN: Soft, nontender, and nondistended. No organomegaly noted. MUSCULOSKELETAL: Good muscle strength throughout. No lower extremity edema noted. VASCULAR: +2 radial pulses bilaterally, +1 DP/PT pulses bilaterally. NEUROLOGIC: Cranial nerves 2 through 12 seem intact. LABORATORY DATA: White count of 5, hemoglobin 15, hematocrit 46, and platelets 200. Sodium 139, potassium 4.2, chloride 106, BUN 11, and creatinine 1.0. Troponin 0.017. Influenza A/B negative. Group B strep negative. Chest x-ray, no acute abnormalities. EKG showing first-degree AV block, PAC. ASSESSMENT AND PLAN: 1. Upper respiratory illness. 2. Chest pain. 3. Shortness of breath. 4. History of coronary artery bypass grafting x2 in 2014 at [facility]. 5. Hypertension. 6. Hyperlipidemia. PLAN: The patient presents to [facility] ER with complaints of shortness of breath, chest pain x1 week. Cardiac enzymes negative thus far. We will continue to cycle cardiac enzymes. We will do echo to evaluate heart function and structure. Restart the patient on aspirin, statin, and beta-makenna therapy. If cardiac enzymes are negative, we will proceed with a stress test in a.m. We will continue to monitor the patient and adjust cardiac therapy as clinical course dictates. Thank you very much for this consult. Dictated by Rei Meade NP Seen and examined. Agree with history/physical/assessment/plan as noted above by AUTOPSY ASSISTANTRei. 58YM with multiple comorbidities including CAD/CABG presenting with 1wk hx of breathlessness and vague complaints. We ultimately were called to evaluate CV status. Will check LV function with echo. Monitor serial enzymes for ?equivalent angina symptoms. If negative, will proceed with ischemic CV evaluation with stress testing tomorrow AM. Mahi Zimmerman MD DC/IGOR /[id number] [place]
[2019-09-15] MEDS ORDERED: TEMAZEPAM 15 MG CAP PO PRN (19:45)
[2019-09-15 20:00] VITALS: BP 118/70
[2019-09-15] MEDS ORDERED: ALBUTEROL/IPRATROPIUM 3 ML NEB NEB PRN (20:15)
[2019-09-15] MEDS ORDERED: ONDANSETRON HCL INJ 2MG/ML 2ML 2 MG/ML VIAL IV PRN (20:15)
[2019-09-15] MEDS ORDERED: ACETAMINOPHEN 325 MG TAB PO PRN (20:15)
[2019-09-15] MEDS ORDERED: GUAIFENESIN/CODEINE 10 ML CUP PO PRN (20:15)
[2019-09-15] MEDS ORDERED: BENZONATATE 100 MG CAP PO PRN (20:15)
--- NOTE | 2019-09-15 20:17 | NUR ---
call and spoke to dr kennedy regarding consult no new orders received.
[2019-09-15] MEDS: LORATADINE 10 MG TAB PO SCH (20:58)
[2019-09-15] MEDS: AMOXICILLIN/CLAVULANATE K 875 MG TAB PO SCH (20:58)
[2019-09-15] MEDS: PREDNISONE 10 MG TAB PO SCH (20:58)
[2019-09-15] MEDS: FLUTICASONE PROPIONATE NASAL SPRAY NS SCH (20:58)
[2019-09-15 21:00] VITALS: BP 118/70
[2019-09-15] MEDS ORDERED: ATORVASTATIN 40 MG TAB PO SCH (21:00)
[2019-09-15] MEDS ORDERED: ATORVASTATIN 20 MG TAB PO SCH (21:00)
--- NOTE | 2019-09-15 21:11 | History and Physical ---
CHIEF COMPLAINT: Shortness of breath, chest pain. HISTORY OF PRESENT ILLNESS: A 58-year-old male with history of hypertension. He presented to his PCP's office last . Of note, he was given some nasal spray that he could not afford and reports that he has some postnasal drip, cough, congestion, and chest tightness, came into the ED today due to no resolve of his symptoms. The patient reports that he could not afford the nasal spray that his PCP sent him to the pharmacy late last week. Today, he woke up and stated that he had chest pain substernally, but with no radiation. Denies any pressure-like symptoms. No associated nausea or vomiting. He does have some associated cough and congestion, more like seasonal allergies-like symptoms. The patient is seen and evaluated at bedside on the medical floor. He is currently doing well with no other issues at this time. Cardiology and Pulmonary have been consulted. He is scheduled for a cardiac stress test tomorrow. REVIEW OF SYSTEMS: Pertinent positive: Cough, congestion, postnasal drip, and shortness of breath. The rest of 14-point review of systems are reviewed with the patient and are negative. ALLERGIES: NO KNOWN DRUG ALLERGIES. HOME MEDICATIONS: Aspirin, atorvastatin, hydrochlorothiazide, metoprolol, and temazepam. PAST MEDICAL HISTORY: He has hyperlipidemia and hypertension. PAST SURGICAL HISTORY: Reports none. FAMILY HISTORY: Hypertension and diabetes. SOCIAL HISTORY: No drugs. No alcohol. Does not smoke. Good social support. PHYSICAL EXAMINATION: VITAL SIGNS: Temperature is 96.3, pulse 56, respiratory rate is 19, blood pressure is 134/83, and pulse ox 99% on room air. GENERAL: Not in acute distress. Alert and oriented x3. Cooperative on examination. HEENT: Head; normocephalic, atraumatic. Eyes; pupils are equal, round, and reactive to light bilaterally. Extraocular movements intact bilaterally. Throat; no evidence of erythema or exudates in the posterior pharynx. Has poor dentition. NECK: Supple. Good range of motion. PULMONARY: Clear to auscultation bilaterally. No wheezing, no rales, no rhonchi, no crackles appreciated. CARDIOVASCULAR: Positive S1 and S2. No murmurs, rubs, or gallops appreciated. ABDOMEN: Soft, nondistended, and nontender to palpation. Bowel sounds present. MUSCULOSKELETAL: Strength is 5/5 throughout. No evidence of any muscle deficits on examination. No weakness appreciated. NEUROLOGIC: Cranial nerves 2 through 12 grossly intact. No evidence of any neurological deficits on exam. SKIN: Intact. Warm to touch. Good cap refill. PSYCHIATRIC: Normal affect and mood. EXTREMITIES: No edema. Good range of motion throughout. LABORATORY DATA: Show white count was 5.5, hemoglobin 15, hematocrit is 46, and platelets of 200. Coagulation; PT 13, INR 1, and PTT 57. D-dimers 0.24. Chemistry; sodium 139, potassium 4.2, chloride 106, bicarb 26, anion gap of 11, BUN is 11, and creatinine is 1. LFTs within normal range. Calcium is 9.6. CK is 2.1 and troponin 0.017. Total protein 7.9. Serologies and flu, group A strep was negative. MICROBIOLOGY: Throat cultures are pending. IMAGING STUDIES: Chest x-ray shows no focal pneumonia or pulmonary edema. IMPRESSION: 1. Chest pain, rule out acute coronary syndrome, likely atypical in nature. 2. Viral upper respiratory infection with postnasal drip, coughing, and congestion. 3. Hypertension. 4. Sinus bradycardia. 5. Hyperlipidemia. PLAN: At this time, trend cardiac enzymes. Continue with cardioprotective medications. Cardiology consulted. He is scheduled for a cardiac stress test tomorrow. As for his symptoms, seems to be more viral in nature, likely some seasonal allergies and possibly sinusitis. We will start him on oral Augmentin, loratadine, oral steroids low-dose, Flonase and DuoNeb treatments. We will go ahead and get Pulmonary consultation, as he complains of shortness of breath, despite he does not exhibited in the examination time and also, he is not on any nasal cannula during my evaluation. There is no evidence of any edema. We are going to resume same home medications with no changes. Await Pulmonary and Cardiology recommendations. Encourage ambulation. Lovenox for DVT prophylaxis. MD GARCIA Rowe/IGOR /[id number]
[2019-09-16] VITALS: BP 133/76
[2019-09-16 04:00] VITALS: BP 113/62
[2019-09-16 05:27] LABS: BASOPHILS % 0.1 % (0.0-1.0); EOSINOPHILS % 0.4 % (0.0-6.0); HEMOGLOBIN 14.6 g/dL (14.0-18.0); LYMPHOCYTES # (AUTO) 1.6 (1.0-3.2); LYMPHOCYTES % 22.2 % (18.0-39.1); MEAN CORPUSCULAR HEMOGLOBIN 24.5 pg (28-32); MEAN CORPUSCULAR VOLUME 72.3 fL (81-99); MONOCYTES # (AUTO) 0.3 (0.2-0.8); MONOCYTES % 4.6 % (4.4-11.3); NEUTROPHILS # (AUTO) 5.2 (2.1-6.9); NEUTROPHILS % 72.4 % (38.7-80.0); PLATELET COUNT 165 x10e3/uL (140-360); RED BLOOD COUNT 5.95 x10e6/uL (4.3-5.7); RED CELL DISTRIBUTION WIDTH 16.9 % (11.7-14.4)
[2019-09-16 05:43] LABS: INR 1.04; PROTHROMBIN TIME 14.2 seconds (11.9-14.5)
[2019-09-16 05:44] LABS: ALBUMIN 4.1 g/dL (3.5-5.0); ALBUMIN/GLOBULIN RATIO 1.2 (0.8-2.0); CALCIUM 9.4 mg/dL (8.4-10.2); CHLORIDE 106 mmol/L (98-107); GLUCOSE 104 mg/dL (74-118); POTASSIUM 4.4 mmol/L (3.5-5.1); SODIUM 139 mmol/L (136-145); TRIGLYCERIDES 58 MG/DL (0-149)
[2019-09-16 06:01] LABS: ALKALINE PHOSPHATASE 47 IU/L (40-150); ANION GAP 12.4 mmol/L (8-16); BLOOD UREA NITROGEN 12 mg/dL (7-26); BUN/CREATININE RATIO 13 (6-25); CARBON DIOXIDE 25 mmol/L (22-29); CHOLESTEROL 101 MD/DL (0-199); CREATININE, SERUM 0.91 mg/dL (0.72-1.25); EST GLOMERULAR FILTRATION RATE > 60 ML/MIN (60-)
--- NOTE | 2019-09-16 07:02 | NUR ---
Bedside shift report received from PM nurse; pt awake, alert, no signs of distress.
[2019-09-16 07:16] LABS: ALANINE AMINOTRANSFERASE 22 IU/L (0-55)
[2019-09-16 07:23] VITALS: BP 119/63
[2019-09-16 08:00] VITALS: BP 119/63
[2019-09-16 08:32] LABS: CHOL/HDL RATIO 2.5 (3.9-4.7); HDL CHOLESTEROL 40 MG/DL (40-60); LDL CHOLESTEROL 49 MG/DL (60-130)
[2019-09-16] MEDS ORDERED: ASPIRIN 81 MG ENTERIC COATED PO SCH (09:00)
[2019-09-16] MEDS: METOPROLOL TARTRATE 25 MG TAB PO SCH ×2 (09:00→10:25)
--- NOTE | 2019-09-16 09:24 | NUR ---
PT LEAVING FOR STRESS TEST; LEFT IN STABLE CONDITION.
--- NOTE | 2019-09-16 10:03 | NUR ---
pt returned from stress test, pt awake, alert, ambulatory, no signs of distress.
[2019-09-16] MEDS: LORATADINE 10 MG TAB PO SCH (10:23)
[2019-09-16] MEDS: FLUTICASONE PROPIONATE NASAL SPRAY NS SCH (10:23)
[2019-09-16] MEDS: AMOXICILLIN/CLAVULANATE K 875 MG TAB PO SCH (10:23)
[2019-09-16] MEDS: PREDNISONE 10 MG TAB PO SCH (10:23)
[2019-09-16 11:19] VITALS: BP 142/71
[2019-09-16] MEDS ORDERED: ONDANSETRON HCL 4 MG ORAL DISINTEGRATING TAB PO PRN (13:15)
[2019-09-16] MEDS ORDERED: AZITHROMYCIN250 MG PO (13:15)
[2019-09-16] MEDS ORDERED: METHYLPREDNISOLO4 M1 (13:19)
[2019-09-16] MEDS ORDERED: CLARITIN-D 241 EACH PO (13:19)
[2019-09-16] MEDS ORDERED: METOPROLOL TART25 MG PO (13:22)
[2019-09-16] MEDS ORDERED: TESSALON PERLE100 MG PO (13:23)
--- NOTE | 2019-09-16 13:23 | EXERCISE STRESS TEST ---
DATE OF STUDY: 09/16/2019 10:00:00 Stress Test - Treadmill ONLY INDICATION FOR STUDY: Coronary artery disease with bypass grafts and questionable equivalent angina symptoms. TECHNICAL DETAILS: After risks, benefits, pros and cons of today's exercise treadmill stress test was explained to the patient, the patient agreed to proceed. The patient was brought down to the stress lab where 12-lead EKG monitoring and blood pressure monitoring were obtained. He exercised on a Dmitriy protocol going for a total duration of 8 minutes and 23 seconds achieving his target heart rate. The patient went from a baseline heart rate of 73 beats per minute to a maximum of 139 beats per minute, which is above his target heart rate of 138 beats per minute. Blood pressure went from a baseline of 130/88 to a maximum of 173/84, which is an appropriate blood pressure response. Underlying EKG revealed normal sinus rhythm, normal axis and no ST-T wave changes and at peak exercise there was no ischemic EKG changes and more importantly no chest pain or equivalent angina symptoms. Exercise treadmill stress test was stopped 2:23min in Stage III of the Dmitriy protocol due to achievement of target heart rate. At that point in time, the patient was recovered and the test concluded when his heart rate fell below 100 beats per minute. CONCLUSIONS: 1. Exercise treadmill stress test was negative for any ischemic EKG changes or symptoms. 2. Good exercise tolerance: For total duration of 8 minutes 23 seconds achieving a total workload of 10.1 METs. 3. Findings of the stress test were explained to the patient including limitations. MD KEITH Jean Baptiste/IGOR /[id number] [place]
[2019-09-16] MEDS ORDERED: ENOXAPARIN SOD INJ 40 MG/0.4 ML SYR SC SCH (17:00)
--- NOTE | 2019-09-16 18:40 | Consultation ---
DATE OF CONSULTATION: 09/16/2019 Pulmonary Medicine Consult REASON FOR REFERRAL: Shortness of breath. HISTORY OF PRESENT ILLNESS: Mr. Coronado is a pleasant 58-year-old gentleman with shortness of breath. The patient presented to [facility] on September 15, 2019, with some chest pain. The patient with onset times couple of days where he started noticing worsening of his symptoms. His symptoms, however, possibly began 4-5 days ago. It started with some shortness of breath and some congestion. He had some hoarse voice. The patient was given nasal spray by his PCP doctor. The patient failed to improve. He came to emergency room. He felt significantly better once getting the initial treatment here, which he identifies as steroids and antibiotics. The patient was noted to have significant shortness of breath. He is admitted. History of intermittent bronchitis. Intermittent allergies. PAST MEDICAL HISTORY: Hypertension, hyperlipidemia, coronary artery disease status post CA, status post CABG in 2014. MEDICATIONS: Medication list reviewed per the chart record. ALLERGIES: NO KNOWN DRUG ALLERGIES. SOCIAL HISTORY: No smoking. No drinking. No drugs. The patient . FAMILY HISTORY: Noncontributory to this. REVIEW OF SYSTEMS: GENERAL: No weight change. OPHTHALMOLOGIC: No double vision. ENT: No mouth ulcers. ENDOCRINE: No known thyroid disease. PULMONARY: No hemoptysis. CARDIAC: No recent heart attacks. No change in medication. GI: No diarrhea. : No blood in the urine. NEUROLOGIC: No seizures. OBJECTIVE: VITAL SIGNS: Afebrile, vital signs noted, reviewed per the chart record. GENERAL: In no acute distress, alert and calm right now. HEENT: Normocephalic, atraumatic. NECK: Supple. Throat midline. LUNGS: Bilateral air entry with rare rhonchi, mostly clear. CARDIOVASCULAR: S1, S2. No murmurs, rubs, or gallops. ABDOMEN: Soft, nontender. EXTREMITIES: No clubbing. No cyanosis. There is no edema. INTEGUMENT: No rash or purpura. LABORATORY DATA: 12 BUN, 0.9 creatinine. 25 bicarbonate. 7 white count, 43 hematocrit, 165 platelets. Chest x-ray with clear lungs. IMPRESSION AND PLAN: 1. Acute upper respiratory infections, possible viral, possible allergic. 2. Intermittent allergies. 3. Probable intermittent asthma. 4. Coronary artery disease, status post coronary artery bypass graft and myocardial infarction in 2015. 5. Hyperlipidemia. 6. Hypertension. Continue steroids which are not at low dose, which is quite reasonable. We will continue weaning off steroids as feasible. Continue bronchodilators. Antibiotic to go on for possibility of pneumonitis or other condition. We will follow along closely. Thank you very much, Dr. Loaiza for this consult. Please call for questions. MD DAR Ontiveros/MODL /[id number]
== END 2019-09-16 14:58 | disposition home or self-care (01) ==
LOC: ER 13:07 → ERHOLD 14:24 → UNDODISOB 15:41 → MED/SURG2 15:48
PROVIDERS: ADMIT Internal Medicine; ATTEND Internal Medicine
DX: J06.9 Acute upper respiratory infection, unspecified (principal); R07.89 Other chest pain; R09.82 Postnasal drip; R00.1 Bradycardia, unspecified; E78.5 Hyperlipidemia, unspecified; I25.10 Atherosclerotic heart disease of native coronary artery without angina pectoris; Z95.1 Presence of aortocoronary bypass graft; I25.2 Old myocardial infarction; I10 Essential (primary) hypertension; J30.89 Other allergic rhinitis; G47.33 Obstructive sleep apnea (adult) (pediatric)
CPT/HCPCS: 36415; 71045; 80053; 80061; 82550; 82553; 83518; 84443; 84484; 85025; 85379; 85610; 85730; 87070; 87400; 93005; 93017; 93306; 99284; G0378; J7512

== ENCOUNTER 2019-10-21 15:13 | Emergency (ER) | payer MEDICARE, OTHER ==
[~2019-10-21] VITALS: Ht 198.1 cm; Wt 124.3 kg
[~2019-10-21 15:13] MED LIST changes: +ASPIRIN CHEW81 MG PO; +AZITHROMYCIN250 MG PO; +CLARITIN-D 241 EACH PO; +METHYLPREDNISOLO4 M1; +TESSALON PERLE100 MG PO
--- OUTSIDE RECORDS SUMMARY | 2019-10-21 15:17 | XMS REPORT | Summary of Care ---
Author Author [facility] - [facility] Organization [facility] - Health Address Unknown Phone Unavailable Care Team Providers Care Temperature Regulator Name Role Phone Sergio Sanabria MD PCP Reason for Visit * Reason Comments Assessment Encounter Details Care Team Description Date Type Department Bushra Coles MD [address] [place] [id number] Assessment 09/15/[address] [facility] Cardiology- [address], [address] [place] [address] Allergies No Known Allergiesdocumented as of this encounter (statuses as of 09/22/2019) Medications End Date Status Medication Sig Dispensed [...] 0 Coronary artery disease (two) times involving [place] coronary daily. artery of [place] heart without angina pectoris Active atorvastatin 40 mg Take 1 tablet 90 tablet 3 tabletIndications: by mouth at 0 Coronary artery disease bedtime. involving [place] coronary artery of [place] heart without angina pectoris Active hydroCHLOROthiazide 12.5 Take 1 90 capsule 1 mg capsuleIndications: capsule by 0 Essential hypertension mouth daily. 10/09/2019 Active mometasone (NASONEX) 50 Use 1 [place] 17 g 0 mcg/actuation nasal in each 0 sprayIndications: Dyspnea nostril every on exertion 4 (four) hours as needed (sinus congestion) for up to 30 days. Active azelastine 137 mcg (0.1 Use 1 [place] 30 mL 3 %) nasal in each 0 sprayIndications: nostril 2 Salpingitis of left (two) times eustachian tube daily. 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 H/O coronary artery bypass surgery 05/12/2015 CAD (coronary artery disease) 05/12/2015 NSTEMI (non-ST elevated myocardial infarction) 05/08/2015 Insomnia 07/03/2012 documented as of this encounter (statuses as of 09/22/2019) Resolved Problems Problem Noted Date Resolved Date Pre-syncope 08/15/2015 10/20/2018 Edema of hand 08/02/2015 10/20/2018 Weakness of left hand 08/02/2015 10/20/2018 Chest pain 11/15/2011 10/20/2018 Overview: ICD10 Diagnosis Term Set Builder Utility Other chronic otitis externa 11/12/2006 10/20/2018 documented as of this encounter (statuses as of 09/22/2019) Immunizations Name Administration Dates Next Due Influenza [...] Description Date Type Specialty Sergio Sanabria MD [address] [place] [id number] 11/24/2019 Office Visit Family Medicine Bushra Coles MD [address] [facility] [address] [place] [address] [phone] 07/07/2020 Office Visit Cardiology Health Maintenance Due [...] Adv PPO HUMANA - MANAGED MEDICARE HUMANA [id number] 2017-P CHOICE resent documented as of this encounter
[2019-10-21 16:20] LABS: BASOPHILS % 0.4 % (0.0-1.0); EOSINOPHILS # (AUTO) 0.1 (0.0-0.4); EOSINOPHILS % 2.4 % (0.0-6.0); HEMATOCRIT 42.3 % (38.2-49.6); HEMOGLOBIN 14.3 g/dL (14.0-18.0); LYMPHOCYTES # (AUTO) 1.5 (1.0-3.2); MEAN CORPUSCULAR HEMOGLOBIN 24.1 pg (28-32); MEAN CORPUSCULAR HGB CONC 33.8 g/dL (31-35); MEAN CORPUSCULAR VOLUME 71.3 fL (81-99); MONOCYTES # (AUTO) 0.4 (0.2-0.8); MONOCYTES % 7.6 % (4.4-11.3); NEUTROPHILS % 59.4 % (38.7-80.0); PLATELET COUNT 203 x10e3/uL (140-360); RED BLOOD COUNT 5.93 x10e6/uL (4.3-5.7); RED CELL DISTRIBUTION WIDTH 16.4 % (11.7-14.4)
--- NOTE | 2019-10-21 16:38 | Diagnostic Imaging Report ---
EXAMINATION: CHEST SINGLE (PORTABLE) INDICATION: Carbon monoxide inhalation COMPARISON: Chest radiograph 09/15/2019 FINDINGS: LINES/TUBES:None LUNGS:The lungs are well-inflated. No focal consolidation or pulmonary edema. PLEURA:No pleural effusion or pneumothorax. MEDIASTINUM:The cardiomediastinal silhouette appears normal in size and shape. BONES/SOFT TISSUES:No acute osseous injury. Sternotomy wires unchanged. ABDOMEN:No free air under the diaphragm. IMPRESSION: No focal pneumonia or pulmonary edema. Signed by: Chandu Chaney MD on 10/21/2019 4:35 PM
[2019-10-21 16:46] LABS: ALANINE AMINOTRANSFERASE 20 IU/L (0-55); ALBUMIN 3.9 g/dL (3.5-5.0); ALBUMIN/GLOBULIN RATIO 1.2 (0.8-2.0); ALKALINE PHOSPHATASE 43 IU/L (40-150); ANION GAP 8.1 mmol/L (8-16); BLOOD UREA NITROGEN 13 mg/dL (7-26); BUN/CREATININE RATIO 12 (6-25); CALCIUM 9.2 mg/dL (8.4-10.2); CARBON DIOXIDE 27 mmol/L (22-29); CHLORIDE 107 mmol/L (98-107); CREATINE KINASE 200 IU/L (30-200); CREATININE, SERUM 1.07 mg/dL (0.72-1.25); EST GLOMERULAR FILTRATION RATE > 60 ML/MIN (60-); GLUCOSE 112 mg/dL (74-118); POTASSIUM 4.1 mmol/L (3.5-5.1); SODIUM 138 mmol/L (136-145)
[2019-10-21] MEDS ORDERED: INSULIN REGULAR, HUMAN 100 UNIT/1 ML 3ML VIAL IV ONE (17:00)
[2019-10-21 18:08] LABS: BILIRUBIN,URINE NEGATIVE (NEGATIVE); CLARITY,URINE CLEAR (CLEAR); COLOR,URINE YELLOW (YELLOW); KETONES,URINE NEGATIVE (NEGATIVE); LEUKOCYTE ESTERASE ,URINE NEGATIVE (NEGATIVE); NITRITE,URINE NEGATIVE (NEGATIVE); PROTEIN,URINE DIPSTICK NEGATIVE (NEGATIVE); URINE UROBILINOGEN 0.2 mg/dL (0.2 - 1)
[2019-10-21] MEDS ORDERED: ACETAMINOPHEN 325 MG TAB PO ONE (18:30)
[2019-10-21 18:43] LABS: RBC,URINE 0-5 /HPF (0-5); WBC,URINE (MAN) 0-5 /HPF (0-5)
== END 2019-10-21 20:25 | disposition home or self-care (01) ==
LOC: ER 15:13
DX: G44.89 Other headache syndrome (principal); I25.10 Atherosclerotic heart disease of native coronary artery without angina pectoris; E78.5 Hyperlipidemia, unspecified; Z95.1 Presence of aortocoronary bypass graft
CPT/HCPCS: 36415; 71045; 80053; 81001; 82550; 82553; 83880; 84484; 85025; 93005; 99284